=== PATIENT | female | born 1960 | race Caucasian/White ===

== ENCOUNTER 2021-09-14 13:18 | Inpatient (IN) ==
[2021-09-14 13:53] LABS: Basophils # (auto) 0.02 K/uL (0-0.2); Basophils % (auto) 0.2 %; Eosinophils # (auto) 0.22 K/uL (0-0.5); Eosinophils % (auto) 2.7 %; Hematocrit (blood only) 40.2 % (37-47); Hemoglobin 13.2 g/dL (12.0-16.0); Immature Granulocytes # (auto) 0.02 K/uL (0.00-0.02); Immature Granulocytes % (auto) 0.2 %; Lymphocytes # (auto) 1.58 K/uL (1.2-3.4); Lymphocytes % (auto) 19.4 %; Mean Corpuscular Hemoglobin 28.9 pg (25-34); Mean Corpuscular Hgb Conc 32.8 g/dL (32-36); Mean Corpuscular Volume 88.2 fL (80-100); Mean Platelet Volume 11.3 fL (7.4-10.4); Monocytes % (auto) 7.4 %; Neutrophils # (auto) 5.69 K/uL (1.4-6.5); Neutrophils % (auto) 70.1 %; Platelet Count 277 K/uL (130-400); RDW Coefficient of Variation 14.4 % (11.5-14.5); RDW Standard Deviation 46.8 fL (36.4-46.3); Red Blood Count 4.56 M/uL (4.2-5.4); White Blood Count 8.13 K/uL (4.8-10.8)
[2021-09-14] MEDS ORDERED: NITROGLYCERIN 2% OINTMENT 30GM TUBE EXT STA (13:59)
[2021-09-14] MEDS ORDERED: MoRPHine SULFATE 2 MG/ML CARP IV STA ×2 (13:59)
[2021-09-14] MEDS ORDERED: ONDANSETRON INJ 2 MG/ML 2 ML VIAL IV STA (13:59)
--- NOTE | 2021-09-14 14:04 | Emergency Department Note ---
Impression & Plan Precordial chest pain, Hypertensive urgency, Elevated troponin, History of coronary artery disease ED Provider Note NAME: FRANK BAEZ AGE: 60 SEX: F : 1960 ARRIVES VIA: Ambulance INFORMANT: [Patient] ED PROVIDER(S): [Jason Vazquez MD] CHIEF COMPLAINT: Cardiac assessment HISTORY OF PRESENT ILLNESS: The patient is a 60-year-old female who presents to the ER with chest pain that began fairly suddenly at rest at around 1030, 3-1/2 hours ago. The pain is an 8/10. She has pain across the central chest into the right jaw and down the left arm. The patient was given 2 nitroglycerin and 4 baby aspirin in route. This helped slightly. The patient is not short of breath, no sweating or nausea. She has been in baseline health of late. No exertional dyspnea or chest pain. She has a history of an LAD stent placed about a year ago. She states her symptoms today feel similar to what occurred 1 year ago. REVIEW OF SYSTEMS: See HPI for pertinent positives and negatives. A total of ten systems were reviewed and were otherwise negative. PMHx/PSHx: See Below SOCIAL HISTORY: See Below. PHYSICAL EXAM: GENERAL: Patient is in no acute distress. HEENT: No acute trauma, normocephalic atraumatic, mucous membranes moist, no nasal congestion, no scleral icterus. NECK: No stridor, no adenopathy, no meningismus, trachea is midline. LUNGS: Clear to auscultation bilaterally, no wheeze, no rhonchi, breath sounds equal. Chest: Tender to the anterior sternal chest wall. HEART: Without murmurs gallops or rubs, regular rate and rhythm. ABDOMEN: Soft, nontender, bowel sounds positive, no peritonitis. EXTREMITIES: No cyanosis or edema, full range of motion of all the joints without pain or difficulty, no signs for acute trauma. Strong distal left radial pulse. NEUROLOGIC: Oriented x 3, no acute motor or sensory deficits, no focal weakness. SKIN: No rash, no jaundice, no diaphoresis. DIFFERENTIAL DIAGNOSIS: Cardiac ischemia, aortic dissection, pulmonary embolism, pneumothorax, pneumonia, pericarditis, myocarditis, esophageal rupture, GERD, cholecystitis, pancreatitis, musculoskeletal, as well as other pathologies. EMERGENCY DEPARTMENT COURSE/PROCEDURES: ECG: Indication was chest pain. The ECG shows a normal sinus rhythm with a rate of 75. There is an old anterior infarct. There is no worrisome ST elevation. There is an inverted T wave in lead aVR. No PVCs. The QTc is 431. No old ECGs available for review. Repeat ECG: Indication was chest pain. The ECG shows a normal sinus rhythm with an old anterior infarct and potential old inferior infarct. There is an inverted T wave in lead aVR. There is no ST elevation, no PVCs. QTC is 441. Compared to the ECG from earlier, I see no significant change. Continuous Cardiac Monitoring: An order was placed for continuous cardiac monitoring. The monitor shows a rate of 88 with normal sinus rhythm. MEDICAL DECISION MAKING: There is no leukocytosis or concerning anemia. Platelet count is normal. No coagulopathy. No renal failure or significant electrolyte abnormality. No concerning liver enzyme elevation. COVID test returned negative. Chest x-ray did not show CHF or pneumonia. No significant mediastinal widening. Chest CT did not show any evidence for aortic dissection, no pneumonia. ECG showed a normal sinus rhythm with an old anterior infarct. There was no ST elevation. Repeat ECG performed sometime later showed similar findings. Cardiac enzyme testing x1 is slightly elevated, this elevation could be consistent with cardiac strain/injury. The patient was quite hypertensive upon arrival. She complaining of chest pain, jaw pain and arm pain. She did not meet criteria for a heart alert. The patient received IV morphine for pain, 2 inches of nitroglycerin paste, IV Zofran. She was given IV labetalol and eventually a dose of IV Dilaudid. The patient does feel improved, her blood pressure has improved. She is going t o require a hospital stay. I am concerned about cardiac injury given her complaints and the very very high blood pressure. She has a history of coronary disease. Her troponin will need to be trended. I spoke with the patient and case management. The on-call hospitalist was consulted. Past Med/Surg History Medical History CAD (coronary artery disease) LAD stent in 2020 at [facility] in [place], follows with [facility] Cardiology Depression GERD (gastroesophageal reflux disease) Hyperlipidemia Hypertension Insomnia Social History Smoking Status: Never smoker Feels Safe at Home: Yes Allergies Allergies Allergy/AdvReac Type Severity Reaction Status Date / Time No Known Allergies Allergy Verified 09/14/21 15:34 Home Meds Home Medications Medication Instructions Recorded Confirmed amlodipine 10 mg tablet 10 mg PO QAM 09/14/21 09/14/21 aspirin 81 mg tablet,delayed 81 mg PO DAILY 09/14/21 09/14/21 release atorvastatin 80 mg tablet 80 mg PO HS 09/14/21 09/14/21 bupropion HCl 300 mg 24 hr tablet, 300 mg PO QAM 09/14/21 09/14/21 extended release carvedilol 12.5 mg tablet 12.5 mg PO BID 09/14/21 09/14/21 clopidogrel 75 mg tablet 75 mg PO QAM 09/14/21 09/14/21 losartan 100 mg tablet 100 mg PO QA 09/14/21 09/14/21 mirtazapine 15 mg tablet 15 mg PO HS 09/14/21 09/14/21 omeprazole 40 mg capsule,delayed 40 mg PO QA 09/14/21 09/14/21 release topiramate 50 mg tablet 50 mg PO HS 09/14/21 09/14/21 Results & Data (ED) Vital Signs Vital Signs - 24 hr 09/14/21 13:34 09/14/21 13:44 09/14/21 14:52 Pulse Rate 85 Pulse Rate [Right Finger] 88 Respiratory Rate 18 Respiratory Effort / Characteristics Non-Labored Respiratory Depth Normal Blood Pressure 184/121 H Blood Pressure [Right Arm] 184/121 H 163/110 H Blood Pressure Mean 142 Blood Pressure Mean [Right Arm] 142 127 Pulse Oximetry 98 98 Oxygen Delivery Method Room Air Room Air Sepsis Recent Fever Within 48 Hours No Sepsis New/Unexplained Change in Mental Status No Sepsis Action Taken by Nursing No Action Required Pulse Oximetry Post Tiitration 98 09/14/21 15:28 Pulse Rate Pulse Rate [Right Finger] 70 Respiratory Rate 16 Respiratory Effort / Characteristics Respiratory Depth Normal Blood Pressure Blood Pressure [Right Arm] 169/117 H Blood Pressure Mean Blood Pressure Mean [Right Arm] 134 Pulse Oximetry 89 L Oxygen Delivery Method Room Air Sepsis Recent Fever Within 48 Hours Sepsis New/Unexplained Change in Mental Status Sepsis Action Taken by Nursing Pulse Oximetry Post Tiitration Home Medications Current Medication List: was personally reviewed by me Laboratory Data Attestation: I reviewed the patient's lab results. Result diagrams: 09/14/21 13:29 09/14/21 13:29 Lab Results 09/14/21 09/14/21 09/14/21 Range/Units 13:29 13:29 13:29 WBC 8.13 (4.8-10.8) K/uL RBC 4.56 (4.2-5.4) M/uL Hgb 13.2 (12.0-16.0) g/dL Hct 40.2 (37-47) % MCV 88.2 (80-100) fL MCH 28.9 (25-34) pg MCHC 32.8 (32-36) g/dL RDW Std Deviation 46.8 H (36.4-46.3) fL RDW Coeff of Bill 14.4 (11.5-14.5) % Plt Count 277 (130-400) K/uL MPV 11.3 H (7.4-10.4) fL Immature Gran % (Auto) 0.2 % Neut % (Auto) 70.1 % Lymph % (Auto) 19.4 % [place] % (Auto) 7.4 % Eos % (Auto) 2.7 % Baso % (Auto) 0.2 % Neut # (Auto) 5.69 (1.4-6.5) K/uL Lymph # (Auto) 1.58 (1.2-3.4) K/uL [place] # (Auto) 0.60 H (0.11-0.59) K/uL Eos # (Auto) 0.22 (0-0.5) K/uL Baso # (Auto) 0.02 (0-0.2) K/uL Immature Gran # (Auto) 0.02 (0.00-0.02) K/uL PT 10.5 (9.0-12.0) Seconds INR 1.0 (0.9-1.1) APTT 25.9 (21.0-31.0) Seconds PTT Ratio 0.9 Sodium 138 (136-145) mmol/L Potassium 3.6 (3.5-5.1) mmol/L Chloride 105 (98-107) mmol/L Carbon Dioxide 26 (21-32) mmol/L Anion Gap 7 (3-11) BUN 16 (6-23) mg/dl Creatinine 0.87 (0.6-1.2) mg/dl Est Cr Clr Drug Dosing 80.9 ml/min Est GFR ( Amer) 82.8 ml/min Est GFR (Non-Af Amer) 71.4 ml/min BUN/Creatinine Ratio 18.4 (10-20) Glucose 120 H (70-99(Fasting)) mg/dl Calcium 9.5 (8.5-10.1) mg/dl Magnesium (1.7-2.4) mg/dl Total Bilirubin 0.5 (0.2-1.0) mg/dl AST 11 L (13-39) U/L ALT 14 (7-52) U/L Alkaline Phosphatase 132 H (34-104) U/L Troponin I High Sens 38.2 H (0-14) pg/ml Total Protein 7.1 (6.0-8.3) gm/dl Albumin 4.1 (3.4-5.0) gm/dl Globulin 3.0 (2.5-4.0) gm/dl Albumin/Globulin Ratio 1.4 (0.9-2) SARS-CoV-2, RNA, NAAT (NEGATIVE) 09/14/21 09/14/21 09/14/21 Range/Units 13:29 14:12 15:51 WBC (4.8-10.8) K/uL RBC (4.2-5.4) M/uL Hgb (12.0-16.0) g/dL Hct (37-47) % MCV (80-100) fL MCH (25-34) pg MCHC (32-36) g/dL RDW Std Deviation (36.4-46.3) fL RDW Coeff of Bill (11.5-14.5) % Plt Count (130-400) K/uL MPV (7.4-10.4) fL Immature Gran % (Auto) % Neut % (Auto) % Lymph % (Auto) % [place] % (Auto) % Eos % (Auto) % Baso % (Auto) % Neut # (Auto) (1.4-6.5) K/uL Lymph # (Auto) (1.2-3.4) K/uL [place] # (Auto) (0.11-0.59) K/uL Eos # (Auto) (0-0.5) K/uL Baso # (Auto) (0-0.2) K/uL Immature Gran # (Auto) (0.00-0.02) K/uL PT (9.0-12.0) Seconds INR (0.9-1.1) APTT (21.0-31.0) Seconds PTT Ratio Sodium (136-145) mmol/L Potassium (3.5-5.1) mmol/L Chloride (98-107) mmol/L Carbon Dioxide (21-32) mmol/L Anion Gap (3-11) BUN (6-23) mg/dl Creatinine (0.6-1.2) mg/dl Est Cr Clr Drug Dosing ml/min Est GFR ( Amer) ml/min Est GFR (Non-Af Amer) ml/min BUN/Creatinine Ratio (10-20) Glucose (70-99(Fasting)) mg/dl Calcium (8.5-10.1) mg/dl Magnesium 1.9 (1.7-2.4) mg/dl Total Bilirubin (0.2-1.0) mg/dl AST (13-39) U/L ALT (7-52) U/L Alkaline Phosphatase (34-104) U/L Troponin I High Sens 622.5 H* D (0-14) pg/ml Total Protein (6.0-8.3) gm/dl Albumin (3.4-5.0) gm/dl Globulin (2.5-4.0) gm/dl Albumin/Globulin Ratio (0.9-2) SARS-CoV-2, RNA, NAAT NEGATIVE (NEGATIVE) Administered Medications Magnesium Sulfate/Dextrose (Magnesium Sulfate / D5w) 1 gm in 100 mls @ 50 mls/ hr IV ONE ONE Stop: 09/14/21 18:50 Last Admin: 09/14/21 17:03 Dose: 50 mls/hr Documented by: [id number] Discontinued Medications Hydromorphone HCl (Hydromorphone Inj 0.5 Mg/0.5 Ml Syr) 0.5 mg IV NOW STA Stop: 09/14/21 14:53 Last Admin: 09/14/21 14:57 Dose: 0.5 mg Documented by: [id number] Ioversol (Optiray 320 125ml) 119 ml IV ONCE ONE Stop: 09/14/21 15:13 Last Admin: 09/14/21 15:12 Dose: 119 ml Documented by: [id number] Labetalol HCl (Labetalol Hcl Iv 5 Mg/Ml 20ml) 10 mg IV NOW STA Stop: 09/14/21 14:53 Last Admin: 09/14/21 14:57 Dose: 10 mg Documented by: [id number] Cosigned by: [id number] Morphine Sulfate (Morphine Sulfate 2 Mg/Ml Carp) 2 mg IV NOW STA Stop: 09/14/21 14:00 Last Admin: 09/14/21 14:05 Dose: 2 mg Documented by: [id number] Morphine Sulfate (Morphine Sulfate 2 Mg/Ml Carp) 2 mg IV NOW STA Stop: 09/14/21 14:00 Last Admin: 09/14/21 14:49 Dose: 2 mg Documented by: [id number] Nitroglycerin (Nitroglycerin 2% Ointment 30gm Tube) 2 inch EXT NOW STA Stop: 09/14/21 14:00 Last Admin: 09/14/21 14:05 Dose: 2 inch Documented by: [id number] Ondansetron HCl (Ondansetron Inj 2 Mg/Ml 2 Ml Vial) 4 mg IV NOW STA Stop: 09/14/21 14:00 Last Admin: 09/14/21 14:05 Dose: 4 mg Documented by: [id number] Potassium Chloride (Potassium Chloride Crtab 20 Meq Tabcr) 40 meq PO NOW STA Stop: 09/14/21 16:52 Last Admin: 09/14/21 17:03 Dose: 40 meq Documented by: [id number] Imaging Data Radiologist's Impression: Chest X-Ray 09/14/21 13:54 XR chest 1V portable CLINICAL HISTORY: cp TECHNIQUE: Single frontal radiograph of the chest was obtained. Comparison: None available at the time of this dictation. FINDINGS: No lines and tubes are seen. The cardiomediastinal silhouette is normal. The lungs are clear. No evidence of pleural effusion or pneumothorax. IMPRESSION: No acute chest disease. ACT 112: Negative or not required by law. Electronically signed by: Trevon Barajas M.D. 09/14/2021 2:45 PM Chest CTA 09/14/21 14:52 CT angio chest dissec wo/w con CLINICAL HISTORY: htn, chest pain, arm pain TECHNIQUE: Multidetector row helical CT of the chest was performed before and after injection of IV contrast. Coronal and sagittal reformations were obtained. Automated dose lowering techniques and/or adjustment according to patient size were utilized for this exam. CT DOSE: 1172.56 mGy.cm Comparison: Comparison is made to chest radiograph 09/14/2021 FINDINGS: Lungs and pleura: Atelectasis versus scarring is seen in the dependent portions of the lungs. Heart and pericardium: Heart size is normal. No pericardial effusion. Vessels: No aortic dissection or intramural hematoma is seen. Moderate atherosclerotic disease is seen. Incidental note is made of common origin of the left common carotid artery and the right brachiocephalic artery. The pulmonary trunk is minimally prominent at 32 mm. Mediastinum and jeanie: Subcentimeter lymph nodes are seen. Chest wall and lower neck: Unremarkable. Abdomen: Unremarkable. Bones: Degenerative changes in the thoracic spine. IMPRESSION: No acute abnormality and in particular no evidence of acute aortic injury. ACT 112: Negative or not required by law. Electronically signed by: Trevon Barajas M.D. 09/14/2021 3:23 PM Discharge Plan Visit Data Chief Complaint: Cardiac Assessment Stated Complaint: CHEST PAIN ED Provider: Jason Vazquez Discharge Problem: Precordial chest pain, Hypertensive urgency, Elevated troponin, History of coronary artery disease Patient Disposition: Admitted As Inpatient Condition: Fair Forms Stand Alone Forms: My [employer] Prescriptions Prescriptions: No Action atorvastatin 80 mg tablet 80 mg PO HS RF: 0 carvedilol 12.5 mg tablet 12.5 mg PO BID RF: 0 clopidogrel 75 mg tablet 75 mg PO QAM RF: 0 omeprazole 40 mg capsule,delayed release(DR/EC) 40 mg PO QAM RF: 0 aspirin 81 mg Tablet,Delayed Release (Dr/Ec) 81 mg PO DAILY RF: 0 amlodipine 10 mg tablet 10 mg PO QAM RF: 0 mirtazapine 15 mg tablet 15 mg PO HS RF: 0 losartan 100 mg tablet 100 mg PO QAM RF: 0 bupropion HCl 300 mg tablet extended release 24 hr 300 mg PO QAM RF: 0 topiramate 50 mg tablet 50 mg PO HS RF: 0 Referrals Referrals: PCP,NO [Primary Care Provider] -
[2021-09-14 14:13] LABS: Partial Thromboplastin Ratio 0.9; Partial Thromboplastin Time 25.9 Seconds (21.0-31.0); Prothrombin Time 10.5 Seconds (9.0-12.0)
[2021-09-14 14:22] LABS: Albumin Globulin Ratio 1.4 (0.9-2); Albumin Level 4.1 gm/dl (3.4-5.0); BUN Creatinine Ratio 18.4 (10-20); Bilirubin,Total 0.5 mg/dl (0.2-1.0); Calcium 9.5 mg/dl (8.5-10.1); Creatinine Clr Calc Pharmacy 80.9 ml/min; Est GFR (African American) 82.8 ml/min; Est GFR (Non-African American) 71.4 ml/min; Potassium 3.6 mmol/L (3.5-5.1); Total Protein 7.1 gm/dl (6.0-8.3)
[2021-09-14 14:23] LABS: Troponin I High Sensitivity 38.2 pg/ml (0-14)
--- NOTE | 2021-09-14 14:46 | XRay Report ---
XR chest 1V portable CLINICAL HISTORY: cp TECHNIQUE: Single frontal radiograph of the chest was obtained. Comparison: None available at the time of this dictation. FINDINGS: No lines and tubes are seen. The cardiomediastinal silhouette is normal. The lungs are clear. No evid ence of pleural effusion or pneumothorax. IMPRESSION: No acute chest disease. ACT 112: Negative or not required by law. Electronically signed by: Trevon Barajas M.D. 09/14/2021 2:45 PM
[2021-09-14] MEDS ORDERED: HYDROmorphone INJ 0.5 MG/0.5 ML SYR IV STA (14:52)
[2021-09-14] MEDS ORDERED: LABETALOL HCL IV 5 MG/ML 20ML IV STA (14:52)
[2021-09-14] MEDS ORDERED: OPTIRAY 320 125ml IV ONE (15:12)
--- NOTE | 2021-09-14 15:25 | CT Scan Report ---
CT angio chest dissec wo/w con CLINICAL HISTORY: htn, chest pain, arm pain TECHNIQUE: Multidetector row helical CT of the chest was performed before and after injection of IV c ontrast. Coronal and sagittal reformations were obtained. Automated dose lowering techniques and/or a djustment according to patient size were utilized for this exam. CT DOSE: 1172.56 mGy.cm Comparison: Comparison is made to chest radiograph 09/14/2021 FINDINGS: Lungs and pleura: Atelectasis versus scarring is seen in the dependent portions of the lungs. Heart and pericardium: Heart size is normal. No pericardial effusion. Vessels: No aortic dissection or intramural hematoma is seen. Moderate atherosclerotic disease is see n. Incidental note is made of common origin of the left common carotid artery and the right brachioce phalic artery. The pulmonary trunk is minimally prominent at 32 mm. Mediastinum and jeanie: Subcentimeter lymph nodes are seen. Chest wall and lower neck: Unremarkable. Abdomen: Unremarkable. Bones: Degenerative changes in the thoracic spine. IMPRESSION: No acute abnormality and in particular no evidence of acute aortic injury. ACT 112: Negative or not required by law. Electronically signed by: Trevon Barajas M.D. 09/14/2021 3:23 PM
--- NOTE | 2021-09-14 15:41 | History & Physical Report ---
Date of Service September 14, 2021 Assessment & Plan (1) Chest pain: Plan: - HEART alert called after repeat troponin back at 622.5, ongoing left arm pain despite multiple medications given for pain, HTN (10mg IV Labetalol, Dilaudid, morphine, 2 inch nitro-paste) - Upon arrival, initial HS trop 38.2.--two hours later repeat, is 622.5. - BP now more controlled 150s/90s but left arm pain persists therefore nitro drip started with stop parameters for resolution of chest/arm pain, goal SBP 140. - Low dose heparin drip with bolus ordered. - Spoke with motion picture film examiner house mover helper, plans for emergent cath. Also spoke to purchasing administrator to make aware of patient's impending arrival after sleep lab technologist. - K+ 3.6, ordered 40 mEq KCl PO. - Mg++ 1.9, ordered 1 gm IV Mg. - Further orders to follow, per house mover helper. (2) CAD (coronary artery disease): Plan: - SC last year, LAD stent placed at [facility] in [place]. - Have requested cardiology records from [facility], sees Dr. Sanchez there. - Continue statin, ASA + Plavix, amlodipine, carvedilol, losartan. (3) Hypertension: Plan: - Despite taking morning BP meds prior to arrival, she was very hypertensive upon arrival with highest BP in ED recorded at 184/121. After receiving 10 mg IV labetalol, Dilaudid, morphine, 2 inch nitro paste. - Nitro drip ordered. (4) Hyperlipidemia: Plan: - Continue atorvastatin 80 mg HS. (5) Insomnia: Plan: - Continue mirtazapine. (6) Depression: Plan: - Continue Wellbutrin 300 mg daily. (7) GERD (gastroesophageal reflux disease): Plan: - Takes omeprazole 40 mg, switch to hospital formulary equivalent. Plan: - ICU. - SCDs for VTE ppx. - Full Code. History of Present Illness Chief Complaint: ongoing chest pain since this morning Primary Care Provider: NO PCP Anya Almazan is a 60-year-old female with past medical history significant for CAD with LAD stent placed 1 year ago now on DAPT, hypertension, hyperlipidemia, GERD, depression, an insomnia who presents today with chest pain this morning. [place] this [place], she woke up this morning in her usual state of health, cooked breakfast consisting of sausage and Armenian toast. She ate this, during her morning coffee with her daughter. While sitting down, she began to experience pain in her epigastric region that traveled up her chest and throat into her her jaw to the ear. She initially wanted to wait out the pain to see if going outside, however she later developed left arm pain. This presentation is very similar to how she felt last year prior to her SC, therefore she had daughter call EMS to bring her to ED for further evaluation. She has not had any associated symptoms such as shortness of breath, palpitations, dizziness, lightheadedness, initially was not nauseous, however became slightly nauseous on her arrival to the hospital. She did receive 2 nitro sublingual tabs as well as 4 baby aspirin in route which helped somewhat. Since her SC 1 year ago, she has been compliant with her aspirin and Plavix therapy, BP medd, and statin and has been attending cardiac rehab, this ended last week. There are several occasions within the past couple months when she could not attend due to elevated blood pressure, mostly diastolic blood pressure, with 1 incident this week. She does check her blood pressure at least weekly at home, reports systolic is [id number], diastolic in 70s or 80s. In ED, she initially presented quite hypertensive with BP 184/121, however now down to 150s/90s following 2 inch Nitropaste, morphine, Dilaudid, and 10 mg IV labetalol. Otherwise vital signs within normal limits. After receiving morphine, Dilaudid she went down to 89% on room air, so was placed on 2 L. Initial troponin 38.2. Labs otherwise unremarkable. CXR unremarkable. Chest CTA ordered to evaluate for dissection, given chest pain with significant hypertension, however this was unrevealing for any acute process. Despite the above therapies for blood pressure control and chest pain, patient continued to have left arm pain, her chest pain has resolved. Allergies Allergy/AdvReac Type Severity Reaction Status Date / Time No Known Allergies Allergy Verified 09/14/21 15:34 Home Medications Medication Instructions Recorded Confirmed Type amlodipine 10 mg tablet 10 mg PO QAM 09/14/21 09/14/21 History aspirin 81 mg tablet,delayed 81 mg PO DAILY 09/14/21 09/14/21 History release atorvastatin 80 mg tablet 80 mg PO HS 09/14/21 09/14/21 History bupropion HCl 300 mg 24 hr tablet, 300 mg PO QAM 09/14/21 09/14/21 History extended release carvedilol 12.5 mg tablet 12.5 mg PO BID 09/14/21 09/14/21 History clopidogrel 75 mg tablet 75 mg PO QAM 09/14/21 09/14/21 History losartan 100 mg tablet 100 mg PO QAM 09/14/21 09/14/21 History mirtazapine 15 mg tablet 15 mg PO HS 09/14/21 09/14/21 History omeprazole 40 mg capsule,delayed 40 mg PO QAM 09/14/21 09/14/21 History release topiramate 50 mg tablet 50 mg PO HS 09/14/21 09/14/21 History Past Med/Surg History Medical History CAD (coronary artery disease) LAD stent in 2020 at [facility] in [place], follows with [facility] Cardiology Depression GERD (gastroesophageal reflux disease) Hyperlipidemia Hypertension Insomnia Social History Smoking Status: Former smoker Second Hand Exposure: Yes; Hx Alcohol Use: No Hx Substance Use: No Preferred Language: Greek Communication Ability: Effective Sales Stock Associate Required: No Beliefs That Will Affect Care: None Current Living Situation: Alone Feels Safe at Home: Yes Assistive Devices: Cane Review of Systems Review of Systems: All systems reviewed & are unremarkable except as noted in HPI & below Physical Exam Physical Exam: General: awake, alert, no apparent distress Head: Normocephalic, atraumatic ENT: PERRL, EOMI, no pharyngeal exudate, mucous membranes moist Chest: Clear to auscultation, on room air, no adventitious breath sounds Cardiac: chest pain reproducible with palpation to upper left chest wall; Regular rate and rhythm, no murmur, no JVD, normal peripheral pulses, good capillary refill Abdominal: epigastric, LUQ TTP but without rebound, guarding; NABS x 4 quadrants, soft abdomen Extremities: Normal inspection, no peripheral edema or erythema, calfs nontender to palpation Psych: Normal mood and affect Neuro: AAO x 3, strength intact bilaterally and rated 5/5, no motor deficits, speech is clear, no peripheral sensory deficits Skin: no rash or erythema Results & Data Results & Data ([facility]) Vital Signs (Past 12 Hours) Vital Signs Pulse Pulse Resp BP BP Pulse Ox 09/14/21 15:28 70 16 169/117 H 89 L 09/14/21 14:52 163/110 H 09/14/21 13:44 98 09/14/21 13:34 85 88 18 184/121 H 184/121 H 98 Laboratory Results Abnormal lab results 09/14/21 09/14/21 Range/Units 13:29 13:29 RDW Std Deviation 46.8 H (36.4-46.3) fL MPV 11.3 H (7.4-10.4) fL [place] # (Auto) 0.60 H (0.11-0.59) K/uL Glucose 120 H (70-99(Fasting)) mg/dl AST 11 L (13-39) U/L Alkaline Phosphatase 132 H (34-104) U/L Troponin I High Sens 38.2 H (0-14) pg/ml Diagnostic Findings Chest X-Ray 09/14/21 13:54 XR chest 1V portable CLINICAL HISTORY: cp TECHNIQUE: Single frontal radiograph of the chest was obtained. Comparison: None available at the time of this dictation. FINDINGS: No lines and tubes are seen. The cardiomediastinal silhouette is normal. The lungs are clear. No evidence of pleural effusion or pneumothorax. IMPRESSION: No acute chest disease. ACT 112: Negative or not required by law. Electronically signed by: Trevon Barajas M.D. 09/14/2021 2:45 PM Chest CTA 09/14/21 14:52 CT angio chest dissec wo/w con CLINICAL HISTORY: htn, chest pain, arm pain TECHNIQUE: Multidetector row helical CT of the chest was performed before and after injection of IV contrast. Coronal and sagittal reformations were obtained. Automated dose lowering techniques and/or adjustment according to patient size were utilized for this exam. CT DOSE: 1172.56 mGy.cm Comparison: Comparison is made to chest radiograph 09/14/2021 FINDINGS: Lungs and pleura: Atelectasis versus scarring is seen in the dependent portions of the lungs. Heart and pericardium: Heart size is normal. No pericardial effusion. Vessels: No aortic dissection or intramural hematoma is seen. Moderate atherosclerotic disease is seen. Incidental note is made of common origin of the left common carotid artery and the right brachiocephalic artery. The pulmonary trunk is minimally prominent at 32 mm. Mediastinum and jeanie: Subcentimeter lymph nodes are seen. Chest wall and lower neck: Unremarkable. Abdomen: Unremarkable. Bones: Degenerative changes in the thoracic spine. IMPRESSION: No acute abnormality and in particular no evidence of acute aortic injury. ACT 112: Negative or not required by law. Electronically signed by: Trevon Barajas M.D. 09/14/2021 3:23 PM Code Status & VTE Plan Code Status Full Code. Critical Care Time Critical Care Time: Yes Total Critical Care Time: 35 Supervising Physician Co-Signing Physician Notes I personally saw and examined the patient. I verified all willis points and agree with Liliana Serrano PA-C with the following exceptions and/or additions: 60 year old female with known CAD and LAD stent placed last year at [facility] presents with chest pain radiating jaw and left arm. Chart was reviewed when patient was put up for admission and advised PA to see patient. PA had seen patient when alerted myself to high sensitivity troponin I increase from 38.2 to 622.5 pg/ml when this was resulted at which point I went to see the patient immediately. Reportedly pain had much improved with morphine 2mg IV x2, Dilaudid 0.5mg IV, Labetalol 10mg IV and 1 inch nitro paste currently on however she was still having some left arm pain. No chest pain. EKG without ST elevations or new LBBB. Advised to start nitroglycerin IV drip and I discussed with ICU attending regarding admission to ICU. ER accredited legal secretary contacted Dr Guzman (interventionalist motion picture film examiner) who I personally discussed the patient with and he advised to call for a heart alert to have the sleep lab technologist ready. Patient had occluded LAD stent with thrombus with PCI balloon angioplasty. Will remain on heparin IV for 24 hours. Angiomax given at time of angioplasty. Clopidogrel switched for Brillinta. Patient was reviewed in the ICU s/p cardiac cath and now has complete resolution of her left arm and chest pain. Updated her daughter (Damaris) over the phone. PG Care Time/CCT Total # of Minutes Spent Total Time Spent with Patient: Total time spent is greater than 50% in coordination of care (as documented) at patient's floor/unit and/or counseling patient: Critical Care Time: Yes Total Critical Care Time: 35 Coding Level of Care Code 74522 Initial Inpt Care Lvl 3 Diagnoses Insomnia G47.00 Depression F32.A Chest pain R07.9 CAD (coronary artery disease) I25.10 Hypertension I10 Hyperlipidemia E78.5 GERD (gastroesophageal reflux disease) K21.9 Additional Codes Critical Care Time - Critical Care Time: Yes ([id number])
[2021-09-14] MEDS ORDERED: POTASSIUM CHLORIDE CRTAB 20 MEQ TABCR PO STA (16:51)
[2021-09-14] MEDS ORDERED: MAGNESIUM SULFATE / D5W 1 GM/100 ML BAG IV ONE (16:51)
[2021-09-14] MEDS ORDERED: Heparin IV Adult Wt-Based Low-Dose WITH Bolus Protocol IV SCH (17:14)
[2021-09-14] MEDS ORDERED: STAT IV Infusion **Titration per Protocol STA (17:18)
[2021-09-14] MEDS ORDERED: HEPARIN SOD (PORCINE) 1000 UNIT/ML IV ONE (17:27)
[2021-09-14] MEDS ORDERED: NITROGLYCERIN/D5W 100MCG/ML 250 ML IV SCH (17:30)
[2021-09-14] MEDS ORDERED: HEPARIN SODIUM/DEXTROSE 25,000 UNITS/500 ML BAG IV SCH (17:30)
[2021-09-14] MEDS ORDERED: HEPARIN 25000 UNIT/500 ML D5W IV ONE (17:33)
[2021-09-14] MEDS ORDERED: niCARdipine HCL INJ 2.5 MG/ML 10 ML AMP ONE (17:47)
[2021-09-14] MEDS ORDERED: MIDAZOLAM HCL 1 MG/ML 2ML VIAL ONE (17:47)
[2021-09-14] MEDS ORDERED: HEPARIN (PORCINE) 1000 UNIT/ML 10 ML (CATH LAB USE ONLY) ONE (17:47)
[2021-09-14] MEDS ORDERED: NITROGLYCERIN/D5W 100MCG/ML 20ML SYR ONE (17:48)
[2021-09-14] MEDS ORDERED: fentaNYL citrate 100 MCG/2 ML VIAL ONE (17:48)
--- NOTE | 2021-09-14 17:49 | Emergency Department Note ---
ED Visit Note The patient's second troponin returned quite elevated when compared to the first. She still was having some discomfort. She was not pain-free. Her blood pressure was better controlled. The hospitalist service was involved in the case already, discussions were made with cardiology. The patient is going to go to the cardiac catheterization lab for potential coronary intervention. .
[2021-09-14] MEDS ORDERED: BIVALIRUDIN 250 MG VIAL (CATH LAB ONLY) ONE (17:51)
[2021-09-14] MEDS ORDERED: LIDOCAINE 1% LOCAL 20 ML VIAL ONE (18:01)
--- NOTE | 2021-09-14 18:28 | Pre Anesthesia Assessment ---
Date of Service September 14, 2021 Pre Sedation Assessment Vital Signs Pulse Pulse Resp BP BP Pulse Ox 09/14/21 17:38 70 18 145/95 H 98 09/14/21 15:28 70 16 169/117 H 89 L 09/14/21 14:52 163/110 H 09/14/21 13:44 98 09/14/21 13:34 85 88 18 184/121 H 184/121 H 98 Cardiovascular RRR, no murmur, no edema Respiratory normal respiratory effort, lungs clear to auscultation Pre-Sedation Airway Assessment Smoking Status: Never smoker II III Notes The planned sedation has been discussed with the patient. Informed Consent was obtained. I have identified the patient, determined the appropriateness of sedation and have assessed the patient immediately prior to the procedure. All medicine(s) and interventions are by my order.
[2021-09-14] MEDS ORDERED: PRASugrel TAB 10 MG TAB PO ONE (18:52)
[2021-09-14] MEDS ORDERED: ONDANSETRON INJ 2 MG/ML 2 ML VIAL ONE (18:57)
[2021-09-14] MEDS ORDERED: TICAGRELOR 90 MG TAB ONE (19:00)
--- NOTE | 2021-09-14 19:04 | Post Anesthesia Assessment ---
Date of Service September 14, 2021 Post Sedation Assessment Vital Signs Pulse Pulse Resp BP BP Pulse Ox 09/14/21 17:38 70 18 145/95 H 98 09/14/21 15:28 70 16 169/117 H 89 L 09/14/21 14:52 163/110 H 09/14/21 13:44 98 09/14/21 13:34 85 88 18 184/121 H 184/121 H 98 Recovery Score Activity: Moves 4 extremities Respiration: Deep Breath/Cough Circulation: +/-20% PreAnes Value Consciousness: Fully Awake Oxygen Saturation: O2 needed for >90% Discharge Sedation Level of Care: Phase I Post Sedation Plan On clinical assessment, the patient appears to have tolerated the sedation without complications. Patient is recovering as anticipated. Patient will continue to be monitored by nursing and may be discharged when sedation discharge criteria are met per below protocol. Upon Completions of procedure up to 15 minutes continue every 5 minute vital signs and the P.A.R. score; then discharge to a Phase I or Fast Track to Phase II per the following guidelines: * Discharge Patient to appropriate Phase II area if PAR is 8 or greater or return to pre- procedure baseline. The post - procedure orders will be as directed. * If PAR score is less than 8 or not return to pre-procedure baseline then patient will follow Phase I monitoring till PAR is reached for Phase II. The Phase I may be done in procedure room or may call to secure a Phase I area. * If naloxone or flumazenil are used for reversal, hold in Phase I for continued monitoring from when last reversal dose was given for a minimum of 60 minutes or longer pending the nurse and/or physician discretion of patient condition before discharge to Phase II. Please call the Sedation Physician to re-evaluate and complete post-note for discharge to Phase II area. Do NOT discharge from procedure sedation or Phase 1 until post- sedation evaluation note is complete by procedure /sedation MD Sedation Discharge Instructions to be given to the patient at discharge to home.
--- NOTE | 2021-09-14 19:06 | Cardiac Catheterization ---
[facility] Data: Washer Engineer Cardiac Status Clinical evaluation leading to the procedure CAD Presenation: Non STEMI Diagnostic Physicians Name: Khris Guzman MD Closure Device Recommendations: Medical Therapy and/or Counseling and PCI without planned CABG Cardiac Cath Procedure Full Procedure Date September 14, 2021 Pre-Procedure Diagnosis Pre-Procedure Diagnosis: Non STEMI AUC Score AUC Score: 9 Post-Procedure Diagnosis Post-Procedure Diagnosis: Successful PCI Procedure(s) Performed Procedure(s) Performed: Coronary Angiography and PTCA Schedule Hanger Khris Guzman MD Estimated Blood Loss Estimated Blood Loss: None Summary of Findings 60-year-old female, presented to the hospital with symptoms of chest discomfort and left-sided arm pain for several hours that started this morning. She has prior history of coronary artery disease, LAD intervention performed with proximal LAD stent placed 1 year ago in [place]. She has been on aspirin and Plavix for anticoagulation. Urgent coronary angiography revealed occluded LAD stent with thrombus suggesting late stent thrombosis. Percutaneous intervention was performed initially with 2.5 mm balloon which revealed significant thrombus burden, subsequently she had PTCA performed with 3.5 mm x 15 mm noncompliant balloon at 14-16 atmospheric pressures with multiple inflations. She had successful anglican of flow, KENTON-3 flow and there was evidence of mild thrombus noted in the proximal segments which was nonflow limiting. She will be started on aspirin and Brilinta for anticoagulation, also continue with Angiomax at this point and subsequently will be started on intravenous heparin for the next 24 hours. Intensive risk factor modification including high intensity statins and beta- blockers as before. No family members were immediately available for discussions, these findings were discussed with intensive care unit staff after the procedure. Hemodynamics Rest Ao:: 124/80/112 Final Ao: 121/77/94 LV: not done Recommendations Recommendations: Medical Therapy and/or Counseling and PCI without planned CABG Radiation Exposure (mGy) 1413 Contrast (mls) 60 I attest to the content of the Intraoperative Record and any orders documented therein. Any exceptions are noted below. PG Care Time/CCT Total # of Minutes Spent Total Time Spent with Patient: Total time spent is greater than 50% in coordination of care (as documented) at patient's floor/unit and/or counseling patient:
[2021-09-14] MEDS ORDERED: ACETAMINOPHEN 325 MG TAB PO PRN (19:25)
[2021-09-14] MEDS ORDERED: NITROGLYCERIN SL 0.4 MG/TAB TAB SL PRN (19:25)
[2021-09-14] MEDS ORDERED: POLYETHYLENE (MIRALAX) 17 GM PACK PO PRN (19:25)
[2021-09-14] MEDS ORDERED: ICU PROTOCOL FOR HYPERGLYCEMIA PRN (19:50)
--- NOTE | 2021-09-14 19:57 | Critical Care Consultation ---
Date of Consultation September 14, 2021 Assessment & Plan (1) Admitted to intensive care unit: Reason Critically Ill: 60-year-old female with acute coronary syndrome who is status post PCI with angioplasty to the LAD requiring close hemodynamic monitoring status post coronary intervention. NEURO - * CAM ICU: NEGATIVE CARDIAC/VASCULAR - * Acute Coronary Syndrome s/p PCI w/ angioplasty to the Mid LAD w/o Stenting: * Finish Angiomax then to start Heparin gtt. * Continue Heparin gtt for 24 hrs per Interventionalist. * Per Dr. Guzman, patient to be started on Brilinta given reocclusion while on Plavix/ASA. Patient w/ ?? h/o SOB while on Brilinta in the past. Dr. Guzman suggests retrying again given the benefits. * Continue ASCVD Rx previously prescribed. * AM Echo. * [facility] to follow * EKG: NSR @ [address]/T-wave changes. QTc 441 ms. * Monitor on telemetry. RESPIRATORY - * No h/o pulmonary disease. * Prior smoker. * Supplemental O2 PRN. * Vomited during procedure. Monitor for s/s aspiration. GI/NUTRITION - * AHA Diet RENAL/LYTES - * No significant electrolyte derangements. - * No concerns at this time. * Strict I&Os. ENDO - * No h/o DM or thyroid Dz * BSGs per unit protocol. ISS --> gtt per unit policy. HEME - * Stable H&H * Requiring Heparin gtt ID - * No concerns for infectious contribution at this time. LINES/IV ACCESS - * PIVs x2 DVT PROPHYLAXIS - * Heparin gtt * SCDs I have personally spent 45 minutes of critical care time in the direct management of this patient. This is a life/limb threatening event. This includes time spent evaluating patient, direct bedside care, chart review, placing orders, interpretation of diagnostic studies, discussion with consultants, patient, and family members, as well as other required patient management activities. This time is exclusive of all separately billable procedures, and teaching time and separate from and in addition to any other critical care service time. Thank you for allowing us to participate in the care of this patient. Please refer to my attending physician's documentation for any further recommendations. (2) ACS (acute coronary syndrome): (3) S/P angioplasty: (4) CAD (coronary artery disease): (5) Hypertension: (6) Hyperlipidemia: History of Present Illness Attending Physician: Khris Guzman MD History of Present Illness Patient is a 60-year-old female with a significant past medical history of coronary artery disease, hypertension, and hyperlipidemia. The patient is status post PTCI with JIMMY x1 to the LAD approximately 1 year ago at home at a hospital in [facility]. Patient has reportedly been taking her Plavix, aspirin, and other ASCVD Rx as written. Unfortunately, on Wednesday, the patient had an episode of substernal chest discomfort which lasted briefly. She had no return of symptoms until approximately 10 AM this morning while having breakfast with her family. She had associated substernal chest pain which radiated up across her chest to the RIGHT-sided jaw and reported intense pain to the LEFT upper extremity. This prompted visit to the emergency department. Patient had no EKG changes at the emergency department, however her symptoms were poorly controlled and given her recent stent placement, she was taken to the catheterization suite for PCI. Patient underwent successful PCI with angioplasty of the mid LAD which was occluded. She was started on Angiomax and completed dose and then started on heparin. Plan is to place patient back on Brilinta given her failure while on Plavix. She will be monitored in the ICU overnight Upon evaluation in the ICU, the patient is awake, alert, oriented. She states that she does feel drowsy after her medications, but reports that her pain has 90% resolved. She still complains of some heaviness to the LEFT arm, but reports that it has significantly subsided. She denies complaints of chest pain, nausea, or vomiting. She did vomit 3 times while on the cath table. Otherwise, the patient offers no other complaints at this time. Allergies Allergy/AdvReac Type Severity Reaction Status Date / Time No Known Allergies Allergy Verified 09/14/21 15:34 Home Medications Medication Instructions Recorded Confirmed Type amlodipine 10 mg tablet 10 mg PO QAM 09/14/21 09/14/21 History aspirin 81 mg tablet,delayed 81 mg PO DAILY 09/14/21 09/14/21 History release atorvastatin 80 mg tablet 80 mg PO HS 09/14/21 09/14/21 History bupropion HCl 300 mg 24 hr tablet, 300 mg PO QAM 09/14/21 09/14/21 History extended release carvedilol 12.5 mg tablet 12.5 mg PO BID 09/14/21 09/14/21 History clopidogrel 75 mg tablet 75 mg PO QAM 09/14/21 09/14/21 History losartan 100 mg tablet 100 mg PO QAM 09/14/21 09/14/21 History mirtazapine 15 mg tablet 15 mg PO HS 09/14/21 09/14/21 History omeprazole 40 mg capsule,delayed 40 mg PO QAM 09/14/21 09/14/21 History release topiramate 50 mg tablet 50 mg PO HS 09/14/21 09/14/21 History Patient History Medical History CAD (coronary artery disease) LAD stent in 2020 at [facility] in [place], follows with [facility] Cardiology Depression GERD (gastroesophageal reflux disease) Hyperlipidemia Hypertension Insomnia Social History Smoking Status: Former smoker Second Hand Exposure: Yes; Hx Alcohol Use: No Hx Substance Use: No Preferred Language: Macedonian Communication Ability: Effective Humidifier Operator Required: No Beliefs That Will Affect Care: None Current Living Situation: Alone Feels Safe at Home: Yes Assistive Devices: Cane Review of Systems Review of Systems: A complete 10 point review of systems was reviewed with the patient with pertinent positives and negatives as per history of present illness. All else were negative. Physical Exam Physical Exam: VITAL SIGNS - Vital signs and nursing notes were reviewed. GENERAL - 60-year-old female appearing her stated age who is in no acute distress. Communicates well with provider and answers questions appropriately. SKIN - Without rashes. HEAD - NC/AT. EYES - PERRL with EOMI bilaterally. Sclera anicteric. EARS - No deformities of external structures noted on gross examination bilaterally. NOSE - Midline and without cyanosis. No epistaxis or purulent drainage noted. MOUTH/OROPHARYNX - Without perioral cyanosis. Buccal mucosa pink and moist. NECK - Neck with FROM. Supple to palpation. No lymphadenopathy noted. No nuchal rigidity. LUNGS - Chest wall symmetric without accessory muscle use, intercostals retractions, or central cyanosis. Normal vesicular breath sounds CTA B/L. No wheezes, rales, or rhonchi appreciated. CARDIAC - RRR with S1/S2. No murmur, rubs, or gallops appreciated. ABDOMEN - Abdominal contour obese without pulsations or visible masses. BS normoactive all four quadrants. No tenderness, palpable masses, hepatosplenomegaly, or ascites noted. EXTREMITIES - No clubbing or peripheral cyanosis. No pretibial edema present. +3/5 radial and dorsalis pedis pulses palpated throughout. +5/5 strength noted in UE/LE bilaterally. NEUROLOGIC - Cranial nerves II through XII grossly intact. Sensory intact to light touch throughout. PSYCH - A&Ox3 and cooperates fully with examiner. Pt is very pleasant and interacts well with examiner. Results & Data Results & Data ([facility]) Vital Signs (Past 12 Hours) Vital Signs Pulse Pulse Resp BP BP Pulse Ox 09/14/21 17:38 70 18 145/95 H 98 09/14/21 15:28 70 16 169/117 H 89 L 09/14/21 14:52 163/110 H 09/14/21 13:44 98 09/14/21 13:34 85 88 18 184/121 H 184/121 H 98 Coding Level of Care Code Critical Care 1st 30-74 mins Diagnoses Admitted to intensive care unit Z78.9 ACS (acute coronary syndrome) I24.9 S/P angioplasty Z98.62 CAD (coronary artery disease) I25.10 Hypertension I10 Hyperlipidemia E78.5 Time Spent (min) 45
[2021-09-14] MEDS: MIRTAZAPINE TAB 15 MG TAB PO SCH (20:46)
[2021-09-14] MEDS: TOPIRAMATE 50 MG TAB PO SCH (20:46)
[2021-09-14] MEDS ORDERED: ATORVASTATIN 40 MG TAB PO SCH (21:00)
--- NOTE | 2021-09-14 21:36 | Electrocardiogram Report ---
Test Reason : Blood Pressure : / mmHG Vent. Rate : 075 BPM Atrial Rate : 075 BPM P-R Int : 156 ms QRS Dur : 092 ms QT Int : 386 ms P-R-T Axes : 066 -17 047 degrees QTc Int : 431 ms Normal sinus rhythm Anterior infarct , age undetermined Abnormal ECG No previous ECGs available Confirmed by Richard Maddox ([id number]) on 09/14/2021 9:36:34 PM Referred By: Confirmed By:Richard Maddox
[2021-09-14] MEDS: carvediloL 12.5 MG TAB PO SCH (21:43)
[2021-09-15] MEDS: ONDANSETRON INJ 2 MG/ML 2 ML VIAL IV PRN (01:33)
[2021-09-15 02:20] LABS: Basophils # (auto) 0.02 K/uL (0-0.2); Basophils % (auto) 0.2 %; Eosinophils % (auto) 0.9 %; Hematocrit (blood only) 42.2 % (37-47); Hemoglobin 13.8 g/dL (12.0-16.0); Immature Granulocytes # (auto) 0.02 K/uL (0.00-0.02); Immature Granulocytes % (auto) 0.2 %; Lymphocytes # (auto) 1.52 K/uL (1.2-3.4); Mean Corpuscular Hemoglobin 28.6 pg (25-34); Mean Corpuscular Hgb Conc 32.7 g/dL (32-36); Mean Corpuscular Volume 87.6 fL (80-100); Mean Platelet Volume 11.2 fL (7.4-10.4); Monocytes # (auto) 1.02 K/uL (0.11-0.59); Monocytes % (auto) 8.8 %; Neutrophils # (auto) 8.97 K/uL (1.4-6.5); Neutrophils % (auto) 76.9 %; Platelet Count 240 K/uL (130-400); RDW Coefficient of Variation 14.6 % (11.5-14.5); RDW Standard Deviation 46.9 fL (36.4-46.3); Red Blood Count 4.82 M/uL (4.2-5.4); White Blood Count 11.65 K/uL (4.8-10.8)
[2021-09-15 02:28] LABS: Partial Thromboplastin Ratio 1.2; Partial Thromboplastin Time 32.4 Seconds (21.0-31.0)
[2021-09-15 02:56] LABS: BUN Creatinine Ratio 15.7 (10-20); Calcium 9.5 mg/dl (8.5-10.1); Chol HDL Ratio 3.6 (0-5); Creatinine Clr Calc Pharmacy 100.5 ml/min; Est GFR (African American) 107.6 ml/min; Est GFR (Non-African American) 92.9 ml/min; Magnesium 2.3 mg/dl (1.7-2.4); Phosphorus 2.5 mg/dl (2.5-4.9); Potassium 3.8 mmol/L (3.5-5.1)
[2021-09-15] MEDS ORDERED: HEPARIN IV BOLUS 3,000 UNITS in SYRINGE 0 ML IV ONE (04:00)
[2021-09-15 07:40] LABS: Estimated Average Glucose 114 mg/dl; Hemoglobin A1C 5.6 % (4.5-5.6)
--- NOTE | 2021-09-15 08:17 | Electrocardiogram Report ---
Test Reason : Blood Pressure : / mmHG Vent. Rate : 064 BPM Atrial Rate : 064 BPM P-R Int : 150 ms QRS Dur : 096 ms QT Int : 428 ms P-R-T Axes : 053 -22 047 degrees QTc Int : 441 ms Normal sinus rhythm Recent Anterior infarct (cited on or before 14-SEP-2021) Abnormal ECG When compared with ECG of 14-SEP-2021 13:24, No significant change Confirmed by Gerald Foster ([id number]) on 09/15/2021 8:17:08 AM Referred By: REFERRED SELF Confirmed By:Gerald Foster
--- NOTE | 2021-09-15 08:19 | Electrocardiogram Report ---
Test Reason : Blood Pressure : / mmHG Vent. Rate : 074 BPM Atrial Rate : 074 BPM P-R Int : 142 ms QRS Dur : 100 ms QT Int : 416 ms P-R-T Axes : 053 -24 050 degrees QTc Int : 461 ms Normal sinus rhythm Low voltage QRS Possible Inferior infarct (cited on or before 14-SEP-2021) Recent Anterior infarct (cited on or before 14-SEP-2021) Abnormal ECG When compared with ECG of 14-SEP-2021 15:38, Criteria for Inferior infarct now present Otherwise no significant change Confirmed by Gerald Foster ([id number]) on 09/15/2021 8:18:55 AM Referred By: REFERRED SELF Confirmed By:Gerald Foster
[2021-09-15] MEDS ORDERED: ASPIRIN 81 MG ECTAB PO SCH (09:00)
[2021-09-15] MEDS ORDERED: CLOPIDOGREL BISULFATE 75 MG TAB PO SCH (09:00)
[2021-09-15 09:19] LABS: Partial Thromboplastin Ratio 1.3
[2021-09-15] MEDS: amLODIPine BESYLATE 5 MG TAB PO SCH (09:42)
[2021-09-15] MEDS: carvediloL 12.5 MG TAB PO SCH ×2 (09:42→21:07)
[2021-09-15] MEDS: ASPIRIN 81 MG ECTAB PO SCH (09:42)
[2021-09-15] MEDS: buPROPion XL 300 MG TABCR PO SCH (09:42)
[2021-09-15] MEDS: ATORVASTATIN 40 MG TAB PO SCH (09:42)
[2021-09-15] MEDS: LOSARTAN POTASSIUM 50 MG TAB PO SCH (09:43)
[2021-09-15] MEDS: TICAGRELOR 90 MG TAB PO SCH ×2 (09:43→21:07)
[2021-09-15] MEDS: PANTOprazole 40 MG TAB PO SCH (09:43)
[2021-09-15] MEDS ORDERED: HEPARIN SOD (PORCINE) 1000 UNIT/ML IV ONE (10:00)
--- NOTE | 2021-09-15 10:08 | XCELERA ---
[id number]
--- NOTE | 2021-09-15 10:19 | Critical Care Progress Note ---
Date of Service September 15, 2021 Assessment & Plan (1) Admitted to intensive care unit: Plan: Reason Critically Ill: 60-year-old female with acute coronary syndrome who is status post PCI with angioplasty to the LAD requiring close hemodynamic monitoring status post coronary intervention. NEURO - * CAM ICU: NEGATIVE CARDIAC/VASCULAR - * Acute Coronary Syndrome s/p PCI w/ angioplasty to the Mid LAD w/o Stenting: * Finish Angiomax then to start Heparin gtt. * Continue Heparin gtt for 24 hrs per Interventionalist. * Per Dr. Guzman, patient to be started on Brilinta given reocclusion while on Plavix/ASA. Patient w/ ?? h/o SOB while on Brilinta in the past. Dr. Guzman suggests retrying again given the benefits. * Continue ASCVD Rx previously prescribed. * AM Echo. * [facility] to follow * EKG: NSR @ [address]/T-wave changes. QTc 441 ms. * Monitor on telemetry. RESPIRATORY - * No h/o pulmonary disease. * Prior smoker. * Supplemental O2 PRN. * Vomited during procedure. Monitor for s/s aspiration. GI/NUTRITION - * AHA Diet RENAL/LYTES - * No significant electrolyte derangements. - * No concerns at this time. * Strict I&Os. ENDO - * No h/o DM or thyroid Dz * BSGs per unit protocol. ISS --> gtt per unit policy. HEME - * Stable H&H * Requiring Heparin gtt ID - * No concerns for infectious contribution at this time. LINES/IV ACCESS - * PIVs x2 DVT PROPHYLAXIS - * Heparin gtt * SCDs I have personally spent 45 minutes of critical care time in the direct ma nagement of this patient. This is a life/limb threatening event. This includes time spent evaluating patient, direct bedside care, chart review, placing orders, interpretation of diagnostic studies, discussion with consultants, patient, and family members, as well as other required patient management activities. This time is exclusive of all separately billable procedures, and teaching time and separate from and in addition to any other critical care service time. Thank you for allowing us to participate in the care of this patient. Please refer to my attending physician's documentation for any further recommendations. (2) ACS (acute coronary syndrome): (3) S/P angioplasty: (4) CAD (coronary artery disease): (5) Hypertension: (6) Hyperlipidemia: Admission and Anticipated Discharge Date Admission Date: September 14, 2021 Results & Data Results & Data ([facility]) Vital Signs (Past 12 Hours) Vital Signs Temp Pulse Resp BP Pulse Ox 09/15/21 08:00 67 16 149/95 H 95 09/15/21 07:00 62 16 140/88 94 09/15/21 06:15 63 12 149/92 H 96 09/15/21 06:00 68 15 152/93 H 98 09/15/21 05:00 63 16 138/86 95 09/15/21 04:50 65 17 140/90 94 09/15/21 04:01 36.6 C 62 17 149/95 H 95 09/15/21 04:00 62 15 140/100 94 09/15/21 03:46 66 16 151/90 H 95 09/15/21 03:30 59 L 16 95 09/15/21 03:00 162/106 H 09/15/21 02:30 59 L 16 96 09/15/21 02:00 63 16 151/96 H 94 09/15/21 01:30 69 17 98 09/15/21 01:00 61 17 158/102 H 94 09/15/21 00:30 62 14 96 09/15/21 00:00 63 16 164/97 H 96 09/14/21 23:30 62 16 95 09/14/21 23:00 36.6 C 65 16 151/101 H 95 09/14/21 22:30 67 15 150/99 H 92 Critical Care Results & Data Vital Signs (Past 12 Hours) Vital Signs Temp Pulse Resp BP Pulse Ox 09/15/21 08:00 67 16 149/95 H 95 09/15/21 07:00 62 16 140/88 94 09/15/21 06:15 63 12 149/92 H 96 09/15/21 06:00 68 15 152/93 H 98 09/15/21 05:00 63 16 138/86 95 09/15/21 04:50 65 17 140/90 94 09/15/21 04:01 36.6 C 62 17 149/95 H 95 09/15/21 04:00 62 15 140/100 94 09/15/21 03:46 66 16 151/90 H 95 09/15/21 03:30 59 L 16 95 09/15/21 03:00 162/106 H 09/15/21 02:30 59 L 16 96 09/15/21 02:00 63 16 151/96 H 94 09/15/21 01:30 69 17 98 09/15/21 01:00 61 17 158/102 H 94 09/15/21 00:30 62 14 96 09/15/21 00:00 63 16 164/97 H 96 09/14/21 23:30 62 16 95 09/14/21 23:00 36.6 C 65 16 151/101 H 95 09/14/21 22:30 67 15 150/99 H 92 Lab & Micro Results (Past 24 Hours) RBC 4.82 M/uL (4.2-5.4) 09/15/21 WBC 11.65 K/uL (4.8-10.8) H 09/15/21 Hgb 13.8 g/dL (12.0-16.0) 09/15/21 Hct 42.2 % (37-47) 09/15/21 MCV 87.6 fL (80-100) 09/15/21 MCH 28.6 pg (25-34) 09/15/21 MCHC 32.7 g/dL (32-36) 09/15/21 RDW Standard Deviation 46.9 fL (36.4-46.3) H 09/15/21 RDW Coefficient of Variation 14.6 % (11.5-14.5) H 09/15/21 Plt Count 240 K/uL (130-400) 09/15/21 MPV 11.2 fL (7.4-10.4) H 09/15/21 Neutrophils (%) (Auto) 76.9 % 09/15/21 Lymphocytes (%) (Auto) 13.0 % 09/15/21 Monocytes # (Auto) 1.02 K/uL (0.11-0.59) H 09/15/21 Eosinophils # (Auto) 0.10 K/uL (0-0.5) 09/15/21 Immature Granulocyte % (Auto) 0.2 % 09/15/21 Neutrophils # (Auto) 8.97 K/uL (1.4-6.5) H 09/15/21 Lymphocytes # (Auto) 1.52 K/uL (1.2-3.4) 09/15/21 Monocytes # (Auto) 1.02 K/uL (0.11-0.59) H 09/15/21 Eosinophils # (Auto) 0.10 K/uL (0-0.5) 09/15/21 Basophils # (Auto) 0.02 K/uL (0-0.2) 09/15/21 Immature Granulocyte # (Auto) 0.02 K/uL (0.00-0.02) 09/15/21 Na 135 mmol/L (136-145) L 09/15/21 K 3.8 mmol/L (3.5-5.1) 09/15/21 Cl 103 mmol/L (98-107) 09/15/21 CO2 24 mmol/L (21-32) 09/15/21 Anion Gap 8 (3-11) 09/15/21 BUN 11 mg/dl (6-23) 09/15/21 Creatinine 0.70 mg/dl (0.6-1.2) 09/15/21 Estimated GFR ( Amer) 107.6 ml/min 09/15/21 Estimated GFR (Non-Af Amer) 92.9 ml/min 09/15/21 BUN/Creatinine Ratio 15.7 (10-20) 09/15/21 Glu 124 mg/dl (70-99(Fasting)) H 09/15/21 Ca 9.5 mg/dl (8.5-10.1) 09/15/21 Phosphorus Level 2.5 mg/dl (2.5-4.9) 09/15/21 Total Bilirubin 0.5 mg/dl (0.2-1.0) 09/14/21 AST 11 U/L (13-39) L 09/14/21 ALT 14 U/L (7-52) 09/14/21 Alkaline Phosphatase 132 U/L (34-104) H 09/14/21 TP 7.1 gm/dl (6.0-8.3) 09/14/21 Albumin 4.1 gm/dl (3.4-5.0) 09/14/21 Globulin 3.0 gm/dl (2.5-4.0) 09/14/21 Albumin/Globulin Ratio 1.4 (0.9-2) 09/14/21 Mg 2.3 mg/dl (1.7-2.4) 09/15/21 01:52 09/15/21 Calcium Level 9.5 mg/dl (8.5-10.1) 09/15/21 01:52 09/15/21 Prothromb Time International Ratio 1.0 (0.9-1.1) 09/14/21 13:29 09/14/21 Diagnostic Findings (Past 24 Hours) Chest X-Ray 09/14/21 13:54 XR chest 1V portable CLINICAL HISTORY: cp TECHNIQUE: Single frontal radiograph of the chest was obtained. Comparison: None available at the time of this dictation. FINDINGS: No lines and tubes are seen. The cardiomediastinal silhouette is normal. The lungs are clear. No evidence of pleural effusion or pneumothorax. IMPRESSION: No acute chest disease. ACT 112: Negative or not required by law. Electronically signed by: Trevon Barajas M.D. 09/14/2021 2:45 PM Chest CTA 09/14/21 14:52 CT angio chest dissec wo/w con CLINICAL HISTORY: htn, chest pain, arm pain TECHNIQUE: Multidetector row helical CT of the chest was performed before and after injection of IV contrast. Coronal and sagittal reformations were obtained. Automated dose lowering techniques and/or adjustment according to patient size were utilized for this exam. CT DOSE: 1172.56 mGy.cm Comparison: Comparison is made to chest radiograph 09/14/2021 FINDINGS: Lungs and pleura: Atelectasis versus scarring is seen in the dependent portions of the lungs. Heart and pericardium: Heart size is normal. No pericardial effusion. Vessels: No aortic dissection or intramural hematoma is seen. Moderate atherosclerotic disease is seen. Incidental note is made of common origin of the left common carotid artery and the right brachiocephalic artery. The pulmonary trunk is minimally prominent at 32 mm. Mediastinum and jeanie: Subcentimeter lymph nodes are seen. Chest wall and lower neck: Unremarkable. Abdomen: Unremarkable. Bones: Degenerative changes in the thoracic spine. IMPRESSION: No acute abnormality and in particular no evidence of acute aortic injury. ACT 112: Negative or not required by law. Electronically signed by: Trevon Barajas M.D. 09/14/2021 3:23 PM I & O Totals 24 Hours 09/14/21 09/15/21 09/16/21 06:59 06:59 06:59 Intake Total 829.9 / 829.9 143.85 / 143.85 Output Total 1700 / 1700 Balance -870.1 / -870.1 143.85 / 143.85 Cumulative 09/14/21 13:10 thru 09/15/21 09:43 Intake Total 973.75 Output Total 1700 Balance -726.25 RT Ventilator Mngmt (Last Documented) Ventilator Ordered Settings Respiratory Rate 16 09/15/21 08:00 Ventilator - PT Measurements Respiratory Rate 16 Coding Diagnoses Admitted to intensive care unit Z78.9 ACS (acute coronary syndrome) I24.9 S/P angioplasty Z98.62 CAD (coronary artery disease) I25.10 Hypertension I10 Hyperlipidemia E78.5
--- NOTE | 2021-09-15 11:47 | Hospitalist Progress Note ---
Date of Service September 15, 2021 Assessment & Plan (1) Chest pain: Plan: Chest Pain - Hx of CAD with LAD PCI 1 year ago in [place]. Was on ASA/Brilinta but developed dyspnea 2/2 brilinta and was switched to asa/plavix after 3-4 months - HEART alert called after repeat troponin back at 622.5, ongoing left arm pain despite multiple medications given for pain, HTN (10mg IV Labetalol, Dilaudid, morphine, 2 inch nitro-paste) - Upon arrival, initial HS trop 38.2.--two hours later repeat, 622.5, post cath - Cath: Occluded LAD stend with late stend thrombosis - Restarted on ASA/Brilinta post cath, recommended heparin gtt until 09/15 1900hrs - Pt has had return of dyspnea excatly the same as prior when tx with Brilinta. Different from presented sx with her heart attack, and no chest pain -Given thrombosis on Plavix and symptomatic intolerance to Brilinta convert to DAPT with aspirin/prasugrel Heparin GTT running through 1700 tonight, continue heparin drip and Brilinta evening dose then load 60 mg prasugrel tomorrow morning. Daily maintenance dose 10 mg thereafter. - Echo: EF 35-40, anterior akinesis, apical akinesis, concentric LVH, grade I DD. - Life vest discussed by Cards with pt, will defer at this time with close followup - +[place] 25mg - Repeat echo in ~1mo (2) CAD (coronary artery disease): Plan: - [place] last year, LAD stent placed at [facility] in [place]. - Have requested cardiology records from [facility], sees Dr. Sanchez there. - Amlodipine, carvedilol, losartan. +pinky - DAPT as noted (3) Hypertension: Plan: - Despite taking morning BP meds prior to arrival, she was very hypertensive upon arrival with highest BP in ED recorded at 184/121. After receiving 10 mg IV labetalol, Dilaudid, morphine, 2 inch nitro paste. - Nitro drip ordered on admit, was held and no infusion was given - BP normotensive at bedside this AM (4) Hyperlipidemia: Plan: - Continue atorvastatin 80 mg HS. - Trig 122, Chol 197, LDL 118, HDL 55 (5) Insomnia: Plan: - Continue mirtazapine. (6) Depression: Plan: - Continue Wellbutrin 300 mg daily. (7) GERD (gastroesophageal reflux disease): Plan: - PPI daily Plan: - ICU. - SCDs for VTE ppx. - Full Code. Admission and Anticipated Discharge Date Admission Date: September 14, 2021 Aldo Vasquez is seen at the bedside this morning. She reports she has had resolution of her chest discomfort and shoulder discomfort that brought her in, however she has had return of a dyspnea exactly like what she experienced while she is on Brilinta for 3 to 4 months. Reports it is a different shortness of breath than like when she came in, and feels like every 10 breaths she catches her breath with a deep breath, and notes she did have similar symptoms which began right after starting Brilinta and mostly resolved after switching to Plavix in the past with the exception of a few sporadic episodes. While she did not appreciate any other side effects while on this medication, she reported was difficult to tolerate and would like to pursue alternatives if possible. Otherwise her other symptoms have resolved and she feels well at bedside. Denies chest pain, chest pressure, difficulty breathing, lightheadedness, dizziness, bleeding. Denies history of bleeding. No headaches. No intracranial bleeds. DOes have a hx of gerd and uses NSAIDs. Discussed ulcer ppx and risk of bleeding Review of Systems Review of Systems: All systems reviewed & are unremarkable except as noted in Subjective Physical Exam Physical Exam: General: A&Ox3. NAD. Cooperative. HEENT: Atraumatic, normocephalic. Vision and hearing grossly intact. Pulm: CTAB A&P. -wheezes, -rales, -rhonchi. Symmetrical chest rise. No increase in work of breathing. No respiratory distress. Cardiac: RRR, -mrg. Radial pulses intact and symmetrical. Abdominal: Nontender, nondistended, soft. BS present. Extremities: Right radial cath access site with overlying dressing, C/C/I. TR band no longer present. Radial pulse intact and symmetrical bilaterally. Sensation of soft touch intact in hands and feet without asymmetry. Assemblyman Or Woman strength 5/5 bilaterally. Cap refill in index finger brisk bilaterally Results & Data Results & Data ([facility]) Vital Signs (Past 12 Hours) Vital Signs Temp Pulse Resp BP Pulse Ox 09/15/21 10:00 73 18 157/101 H 95 09/15/21 09:01 69 17 146/99 H 95 09/15/21 09:00 69 20 96 09/15/21 08:00 67 16 149/95 H 95 09/15/21 07:00 62 16 140/88 94 09/15/21 06:15 63 12 149/92 H 96 09/15/21 06:00 68 15 152/93 H 98 09/15/21 05:00 63 16 138/86 95 09/15/21 04:50 65 17 140/90 94 09/15/21 04:01 36.6 C 62 17 149/95 H 95 09/15/21 04:00 62 15 140/100 94 09/15/21 03:46 66 16 151/90 H 95 09/15/21 03:30 59 L 16 95 09/15/21 03:00 162/106 H 09/15/21 02:30 59 L 16 96 09/15/21 02:00 63 16 151/96 H 94 09/15/21 01:30 69 17 98 09/15/21 01:00 61 17 158/102 H 94 09/15/21 00:30 62 14 96 09/15/21 00:00 63 16 164/97 H 96 PG Care Time/CCT Total # of Minutes Spent Total Time Spent with Patient: Total time spent is greater than 50% in coordination of care (as documented) at patient's floor/unit and/or counseling patient: Coding Level of Care Code 99270 Subseq Hosp Care Lvl 3 Diagnoses Chest pain R07.9 CAD (coronary artery disease) I25.10 Hypertension I10 Hyperlipidemia E78.5 Insomnia G47.00 Depression F32.A GERD (gastroesophageal reflux disease) K21.9
--- NOTE | 2021-09-15 14:27 | Cardiology Progress Note ---
Date of Service September 15, 2021 Assessment & Plan (1) CAD (coronary artery disease): Plan: Late stent thrombosis of mid LAD post POBA with minimal residual thrombus no significant nonculprit disease 2. Ischemic cardiomyopathyEF 35 to 40%, LAD distribution wall motion abnormality 3. Hypertension 4. Dyslipidemia 5. GERD Chest pain-free Hemodynamically and electrically stable No access site complications No signs of heart failure on exam Complete heparin infusion today continue DAPT with aspirin, ticagrelor. Recurrent dyspnea symptoms with ticagrelor. We will transition to prasugrel in a.m. (loading dose) then 10 mg daily. Continue current carvedilol, losartan. Increase carvedilol as BP/heart rate allows add spironolactone We discussed LifeVest. With patient's current LV function on echo will plan to defer repeat limited echo tomorrow to reassess function, rule out LV thrombus From a cardiac standpoint okay with transition to telemetry. Admission and Anticipated Discharge Date Admission Date: September 14, 2021 Subjective Feeling better today. Denies any recurrent chest/arm/neck pain. Reports some intermittent shortness of breath similar to what she had previously while on ticagrelor. Telemetry reviewedno significant ventricular ectopy Echo reviewedhyperdynamic bases, mid anterior/apical akinesis with EF 35 to 40%. No LV thrombus. Flat IVC. Review of Systems Review of Systems: All systems reviewed & are unremarkable except as noted in HPI & below Physical Exam Physical Exam: General: Comfortable HEENT: Sclerae anicteric Lungs: Clear to auscultation bilaterally, no crackles or wheezes Cardiac: Regular rate and rhythm, no murmurs. No JVD Vascular: Right radial artery access site with no ecchymosis, hematoma. Distal pulse and sensation intact. Abdomen: Soft, nontender Extremities: Well perfused, no peripheral edema Neuro: Nonfocal Psych: Alert orient x3, normal affect and mood Results & Data ([facility]) Vital Signs (Past 12 Hours) Vital Signs Temp Pulse Resp BP Pulse Ox 09/15/21 13:00 83 18 130/99 96 09/15/21 12:00 76 17 148/89 H 96 09/15/21 11:00 71 22 149/97 H 95 09/15/21 10:00 73 18 157/101 H 95 09/15/21 09:01 69 17 146/99 H 95 09/15/21 09:00 69 20 96 09/15/21 08:00 67 16 149/95 H 95 09/15/21 07:00 62 16 140/88 94 09/15/21 06:15 63 12 149/92 H 96 09/15/21 06:00 68 15 152/93 H 98 09/15/21 05:00 63 16 138/86 95 09/15/21 04:50 65 17 140/90 94 09/15/21 04:01 97.9 F 62 17 149/95 H 95 09/15/21 04:00 62 15 140/100 94 09/15/21 03:46 66 16 151/90 H 95 09/15/21 03:30 59 L 16 95 09/15/21 03:00 162/106 H 09/15/21 02:30 59 L 16 96 PG Care Time/CCT Total # of Minutes Spent Total Time Spent with Patient: Total time spent is greater than 50% in coordination of care (as documented) at patient's floor/unit and/or counseling patient: Coding Level of Care Code 78045 Subseq Hosp Care Lvl 3 Diagnoses CAD (coronary artery disease) I25.10
[2021-09-15 16:12] LABS: Partial Thromboplastin Ratio 1.4
[2021-09-15] MEDS ORDERED: STOP HEPARIN DRIP ONE (17:00)
[2021-09-15] MEDS: MIRTAZAPINE TAB 15 MG TAB PO SCH (21:07)
[2021-09-15] MEDS: TOPIRAMATE 50 MG TAB PO SCH (21:07)
[2021-09-16 06:14] LABS: Basophils # (auto) 0.03 K/uL (0-0.2); Basophils % (auto) 0.3 %; Eosinophils # (auto) 0.15 K/uL (0-0.5); Eosinophils % (auto) 1.4 %; Hematocrit (blood only) 44.5 % (37-47); Hemoglobin 14.6 g/dL (12.0-16.0); Immature Granulocytes # (auto) 0.05 K/uL (0.00-0.02); Immature Granulocytes % (auto) 0.5 %; Lymphocytes # (auto) 2.37 K/uL (1.2-3.4); Lymphocytes % (auto) 21.8 %; Mean Corpuscular Hemoglobin 28.7 pg (25-34); Mean Corpuscular Hgb Conc 32.8 g/dL (32-36); Mean Corpuscular Volume 87.6 fL (80-100); Monocytes # (auto) 1.26 K/uL (0.11-0.59); Monocytes % (auto) 11.6 %; Neutrophils % (auto) 64.4 %; Platelet Count 259 K/uL (130-400); RDW Coefficient of Variation 14.5 % (11.5-14.5); Red Blood Count 5.08 M/uL (4.2-5.4); White Blood Count 10.86 K/uL (4.8-10.8)
[2021-09-16 06:23] LABS: BUN Creatinine Ratio 15.7 (10-20); Calcium 9.3 mg/dl (8.5-10.1); Creatinine Clr Calc Pharmacy 66.6 ml/min; Est GFR (African American) 68.3 ml/min; Est GFR (Non-African American) 58.9 ml/min; Magnesium 2.1 mg/dl (1.7-2.4); Potassium 3.7 mmol/L (3.5-5.1)
[2021-09-16] MEDS: carvediloL 12.5 MG TAB PO SCH ×2 (08:08→19:48)
[2021-09-16] MEDS: PANTOprazole 40 MG TAB PO SCH (08:09)
[2021-09-16] MEDS: amLODIPine BESYLATE 5 MG TAB PO SCH (08:09)
[2021-09-16] MEDS: ASPIRIN 81 MG ECTAB PO SCH (08:09)
[2021-09-16] MEDS: ATORVASTATIN 40 MG TAB PO SCH (08:09)
[2021-09-16] MEDS: buPROPion XL 300 MG TABCR PO SCH (08:09)
[2021-09-16] MEDS: LOSARTAN POTASSIUM 50 MG TAB PO SCH (08:10)
[2021-09-16] MEDS ORDERED: SPIRONOLACTONE 25 MG TAB PO SCH (09:00)
[2021-09-16] MEDS ORDERED: PRASugrel TAB 10 MG TAB PO ONE (09:00)
--- NOTE | 2021-09-16 09:05 | Electrocardiogram Report ---
Test Reason : Blood Pressure : / mmHG Vent. Rate : 066 BPM Atrial Rate : 066 BPM P-R Int : 140 ms QRS Dur : 090 ms QT Int : 430 ms P-R-T Axes : 059 -22 061 degrees QTc Int : 450 ms Normal sinus rhythm Low voltage QRS Recent Inferior infarct (cited on or before 14-SEP-2021) Recent Anterolateral infarct (cited on or before 14-SEP-2021) Abnormal ECG When compared with ECG of 14-SEP-2021 17:37, T wave inversion more evident in Anterolateral leads Confirmed by Gerald Foster ([id number]) on 09/16/2021 9:04:28 AM Referred By: REFERRED SELF Confirmed By:Gerald Foster
--- NOTE | 2021-09-16 11:10 | XCELERA ---
[id number]
[2021-09-16] MEDS: ONDANSETRON INJ 2 MG/ML 2 ML VIAL IV PRN (11:48)
[2021-09-16] MEDS ORDERED: SODIUM CHLORIDE 0.9% 1000ML 500 ML IV ONE ×2 (13:12→15:33)
--- NOTE | 2021-09-16 16:52 | Cardiology Progress Note ---
Date of Service September 16, 2021 Assessment & Plan (1) CAD (coronary artery disease): Plan: Late stent thrombosis of mid LAD post POBA with minimal residual thrombus no significant nonculprit disease 2. Ischemic cardiomyopathyEF 35 to 40%, LAD distribution wall motion abnormality 3. Hypertension 4. Dyslipidemia 5. GERD Feeling unwell today in the setting of hypotension. Has remained chest pain-free. Troponin downtrending Low suspicion for recurrent stent thrombosis. Suspect related to escalation in GDMT/antihypertensives. LVEF ~40% on Echo, no LV thrombus. low CVP by echo. Hold evening carvedilol Agree with additional IV fluid bolus this afternoon Continue DAPT with aspirin, prasugrel Stop amlodipine Continue home carvedilol, losartan in AM. Pending blood pressures will consider retrial of spironolactone 12.5 mg daily No need for LifeVest If blood pressures improve possible discharge tomorrow Admission and Anticipated Discharge Date Admission Date: September 14, 2021 Subjective Was feeling well initially this morning. Later today felt unwell, to be more short of breath and blood pressures noted to be low down to 70s. Denies any chest pain, arm pain, neck pain. Repeat ECGsinus with anterior T wave inversions consistent with evolving MA [id number] down to 14,000 Echoshowed slightly improved LV function, EF 40%, no LV thrombus, IVC flat Review of Systems Review of Systems: All systems reviewed & are unremarkable except as noted in HPI & below Physical Exam Physical Exam: General: Uncomfortable HEENT: Sclerae anicteric Lungs: Clear to auscultation bilaterally Cardiac: Regular rate and rhythm, no murmurs. Vascular: Right radial artery access site with no ecchymosis, hematoma. Distal pulse and sensation intact. Abdomen: Soft, nontender Extremities: Well perfused, no peripheral edema Neuro: Nonfocal Psych: Alert orient x3, normal affect and mood Results & Data ([facility]) Vital Signs (Past 12 Hours) Vital Signs Temp Pulse Pulse Resp BP Pulse Ox 09/16/21 15:21 84/59 L 90 09/16/21 13:48 92/62 L 09/16/21 08:00 98.4 F 81 63 16 115/75 97 PG Care Time/CCT Total # of Minutes Spent Total Time Spent with Patient: Total time spent is greater than 50% in coordination of care (as documented) at patient's floor/unit and/or counseling patient: Coding Level of Care Code 69591 Subseq Hosp Care Lvl 3 Diagnoses CAD (coronary artery disease) I25.10
--- NOTE | 2021-09-16 17:13 | Hospitalist Progress Note ---
Date of Service September 16, 2021 Assessment & Plan (1) Chest pain: Plan: Chest Pain - Hx of CAD with LAD PCI 1 year ago in [place]. Was on ASA/Brilinta but developed dyspnea 2/2 brilinta and was switched to asa/plavix after 3-4 months - HEART alert called after repeat troponin back at 622.5, ongoing left arm pain despite multiple medications given for pain, HTN (10mg IV Labetalol, Dilaudid, morphine, 2 inch nitro-paste) - Upon arrival, initial HS trop 38.2.--two hours later repeat, 622.5, post cath - Cath: Occluded LAD stend with late stent thrombosis - Restarted on ASA/Brilinta post cath, heparin gtt until 09/15 1900hrs then was discontinued - Pt had return of dyspnea excatly the same as prior when tx with Brilinta. Different from presented sx with her heart attack, and no chest pain -Given thrombosis on Plavix and symptomatic intolerance to Brilinta converted to DAPT with aspirin/prasugrel - Brilinta d/parish, loaded with prasugrel 09/16 AM - Echo: EF 35-40, anterior akinesis, apical akinesis, concentric LVH, grade I DD. Limited repeat echo with normal LV size, LVEF approximately 40%, LAD distribution wall motion abnormalities without significant changes compared to 09/15/2021. Did discuss with cardiology may have some subtle wall motion changes - Life vest discussed by Cards with pt, deferred to close followup Spironolactone 25 mg added Patient hypotensive but fluid responsive 09/16. Following for stent reocclusion vs evolving infarct versus volume depletion. Troponin and 2-hour repeat downtrending Amlodipine discontinued for hypotension. Patient with continued hypotension, spironolactone and losartan held (2) CAD (coronary artery disease): Plan: - [place] last year, LAD stent placed at [facility] in [place]. - Outpt follows with [facility], sees Dr. Sanchez there. - Amlodipine, carvedilol, losartan. +pinky - DAPT as noted - Held antihypertensives for hypotension as noted (3) Hypertension: Plan: - Despite taking morning BP meds prior to arrival, she was very hypertensive upon arrival with highest BP in ED recorded at 184/121. After receiving 10 mg IV labetalol, Dilaudid, morphine, 2 inch nitro paste. - Nitro drip ordered on admit, was held and no infusion was given/required (4) Hyperlipidemia: Plan: - Continue atorvastatin 80 mg HS. - Trig 122, Chol 197, LDL 118, HDL 55 (5) Insomnia: Plan: - Continue mirtazapine. (6) Depression: Plan: - Continue Wellbutrin 300 mg daily. (7) GERD (gastroesophageal reflux disease): Plan: - PPI daily Plan: - ICU. - SCDs for VTE ppx. - Full Code. Admission and Anticipated Discharge Date Admission Date: September 14, 2021 Subjective Patient is seen at the bedside and on reassessment throughout the day. On morning assessment patient was feeling well, normotensive, no new symptoms and no chest pain. 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 Heart rate was elevated 130s, at arrival to bedside heart rate had improved but still hypotensive in 8090 systolic. No chest pain/shortness of breath/difficulty breathing. Lungs with trace bibasilar crackles which clear on deep breath. Given low EF did discuss with cards, IVC was flat on echo and nss bolus was given. Patient was not fluid responsive, heart rate down trended to 80s but continued to be hypotensive in the 80s to 90s. Troponins trended and additional bolus given. Troponins were downtrending on spot and 2-hour recheck. Follow closely overnight, remain ICU on PCU status. If symptoms recur/troponin up trends may need reassessment for stent thrombosis. Patient aware. Review of Systems 2 Review of Systems: All systems reviewed & are unremarkable except as noted in Subjective Patient with no chest pain, chest pressure, shortness of breath throughout the day. Nausea and 1 episode of emesis as noted. Otherwise 10pt review systems negative. Physical Exam Physical Exam: General: A&Ox3. NAD. Cooperative. HEENT: Atraumatic, normocephalic. Vision and hearing grossly intact. Pulm: CTAB A&P. Symmetrical chest rise. No increase in work of breathing. No respiratory distress. Cardiac: RRR, -mrg. Radial pulses intact and symmetrical. Abdominal: Nontender, nondistended, soft. BS present. Extremities: Right radial cath access site C/D/I. Sensation of soft touch intact in hands and feet without asymmetry. [employer] strength 5/5 bilaterally. Cap refill in index finger brisk bilaterally On later morning reassessment trace faint bibasilar crackles which clear on deep breath, no JVD, tachycardic Again with regular rate on reassessment. Abdomen nontender. Cap refill less than 2 seconds in thumb. BP recheck on subsequent reevaluation 90s following boluses, rate remains regular Results & Data Results & Data ([facility]) Vital Signs (Past 12 Hours) Vital Signs Temp Pulse Pulse Resp BP Pulse Ox 09/16/21 15:21 84/59 L 90 09/16/21 13:48 92/62 L 09/16/21 08:00 36.9 C 81 63 16 115/75 97 PG Care Time/CCT Total # of Minutes Spent Total Time Spent with Patient: Total time spent is greater than 50% in coordination of care (as documented) at patient's floor/unit and/or counseling patient: Coding Level of Care Code 18576 Subseq Hosp Care Lvl 3 Diagnoses Chest pain R07.9 CAD (coronary artery disease) I25.10 Hypertension I10 Hyperlipidemia E78.5 Insomnia G47.00 Depression F32.A GERD (gastroesophageal reflux disease) K21.9
[2021-09-16] MEDS: TOPIRAMATE 50 MG TAB PO SCH (19:48)
[2021-09-16] MEDS: MIRTAZAPINE TAB 15 MG TAB PO SCH (19:48)
[2021-09-17 05:42] LABS: Basophils # (auto) 0.03 K/uL (0-0.2); Basophils % (auto) 0.3 %; Eosinophils % (auto) 1.9 %; Hematocrit (blood only) 38.9 % (37-47); Immature Granulocytes # (auto) 0.04 K/uL (0.00-0.02); Immature Granulocytes % (auto) 0.4 %; Lymphocytes # (auto) 2.35 K/uL (1.2-3.4); Lymphocytes % (auto) 22.6 %; Mean Corpuscular Hgb Conc 33.4 g/dL (32-36); Mean Corpuscular Volume 89.6 fL (80-100); Mean Platelet Volume 10.5 fL (7.4-10.4); Monocytes # (auto) 1.15 K/uL (0.11-0.59); Monocytes % (auto) 11.1 %; Neutrophils # (auto) 6.62 K/uL (1.4-6.5); Neutrophils % (auto) 63.7 %; Platelet Count 277 K/uL (130-400); RDW Coefficient of Variation 14.6 % (11.5-14.5); RDW Standard Deviation 48.2 fL (36.4-46.3); Red Blood Count 4.34 M/uL (4.2-5.4); White Blood Count 10.39 K/uL (4.8-10.8)
[2021-09-17 06:06] LABS: BUN Creatinine Ratio 23.6 (10-20); Calcium 8.8 mg/dl (8.5-10.1); Creatinine Clr Calc Pharmacy 47.4 ml/min; Est GFR (Non-African American) 38.8 ml/min; Magnesium 2.2 mg/dl (1.7-2.4); Phosphorus 3.9 mg/dl (2.5-4.9); Potassium 3.7 mmol/L (3.5-5.1)
[2021-09-17] MEDS: ATORVASTATIN 40 MG TAB PO SCH (08:51)
[2021-09-17] MEDS: ASPIRIN 81 MG ECTAB PO SCH (08:51)
--- NOTE | 2021-09-17 08:51 | Electrocardiogram Report ---
Test Reason : Blood Pressure : / mmHG Vent. Rate : 065 BPM Atrial Rate : 065 BPM P-R Int : 140 ms QRS Dur : 086 ms QT Int : 474 ms P-R-T Axes : 058 -42 136 degrees QTc Int : 492 ms Normal sinus rhythm Left axis deviation Low voltage QRS Recent Inferior infarct (cited on or before 14-SEP-2021) Recent Anterolateral infarct (cited on or before 14-SEP-2021) Abnormal ECG When compared with ECG of 15-SEP-2021 06:03, Serial changes of Anterior infarct Present Confirmed by Gerald Foster ([id number]) on 09/17/2021 8:51:22 AM Referred By: REFERRED SELF Confirmed By:Gerald Foster
[2021-09-17] MEDS: carvediloL 12.5 MG TAB PO SCH (08:52)
[2021-09-17] MEDS: buPROPion XL 300 MG TABCR PO SCH (08:52)
[2021-09-17] MEDS: PANTOprazole 40 MG TAB PO SCH (08:52)
--- NOTE | 2021-09-17 10:53 | Cardiology Progress Note ---
Date of Service September 17, 2021 Assessment & Plan (1) CAD (coronary artery disease): Plan: Late stent thrombosis of mid LAD post POBA with minimal residual thrombus no significant nonculprit disease 2. Ischemic cardiomyopathyEF 35 to 40%, LAD distribution wall motion abnormality 3. Hypertension 4. Dyslipidemia 5. GERD Feeling better today. No recurrent chest pain. Blood pressures stable. From a cardiac standpoint OK with discharge today. Home on: -- DAPT with ASA and Prasugrel -- continue home carvedilol 12.5 mg BID. Reduce losartan to 50mg daily. 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 No chest pain. No shortness of breath walking around this morning. Ready to go home. Review of Systems Review of Systems: All systems reviewed & are unremarkable except as noted in HPI & below Physical Exam Physical Exam: General: Comfortable HEENT: Sclerae anicteric Lungs: Clear to auscultation bilaterally Cardiac: Regular rate and rhythm, no murmurs. Vascular: Right radial artery access site with no ecchymosis, hematoma. Distal pulse and sensation intact. Abdomen: Soft, nontender Extremities: Well perfused, no peripheral edema Neuro: Nonfocal Psych: Alert orient x3, normal affect and mood Results & Data ([facility]) Vital Signs (Past 12 Hours) Vital Signs Temp Pulse Pulse Pulse Resp BP BP 09/17/21 10:47 72 18 129/79 09/17/21 08:50 69 17 104/65 09/17/21 07:30 64 09/17/21 07:06 98.1 F 73 15 102/65 09/17/21 04:00 97.7 F 65 18 97/59 L 09/17/21 00:00 98.3 F 62 21 96/70 L 09/16/21 23:55 63 16 Pulse Ox 09/17/21 10:47 96 09/17/21 08:50 97 09/17/21 07:30 09/17/21 07:06 96 09/17/21 04:00 93 09/17/21 00:00 92 09/16/21 23:55 92 PG Care Time/CCT Total # of Minutes Spent Total Time Spent with Patient: Total time spent is greater than 50% in coordination of care (as documented) at patient's floor/unit and/or counseling patient: Coding Level of Care Code 25648 Subseq Hosp Care Lvl 3 Diagnoses CAD (coronary artery disease) I25.10
[2021-09-17] MEDS ORDERED: LOSARTAN POTASSIUM 50 MG TAB PO SCH (11:00)
[2021-09-17] MEDS ORDERED: PRASugrel TAB 10 MG TAB PO SCH (11:00)
--- NOTE | 2021-09-17 11:42 | Hospitalist Progress Note ---
Date of Service September 17, 2021 Assessment & Plan (1) Chest pain: Plan: Chest Pain - Hx of CAD with LAD PCI 1 year ago in [place]. Was on ASA/Brilinta but developed dyspnea 2/2 brilinta and was switched to asa/plavix after 3-4 months - HEART alert called after repeat troponin back at 622.5, ongoing left arm pain despite multiple medications given for pain, HTN (10mg IV Labetalol, Dilaudid, morphine, 2 inch nitro-paste) - Upon arrival, initial HS trop 38.2.--two hours later repeat, 622.5, post cath - Cath: Occluded LAD stend with late stent thrombosis - Restarted on ASA/Brilinta post cath, heparin gtt until 09/15 1900hrs then was discontinued - Pt had return of dyspnea excatly the same as prior when tx with Brilinta. Different from presented sx with her heart attack, and no chest pain -Given thrombosis on Plavix and symptomatic intolerance to Brilinta converted to DAPT with aspirin/prasugrel - Brilinta d/parish, loaded with prasugrel 09/16 AM - Echo: EF 35-40, anterior akinesis, apical akinesis, concentric LVH, grade I DD. Limited repeat echo with normal LV size, LVEF approximately 40%, LAD distribution wall motion abnormalities without significant changes compared to 09/15/2021. Did discuss with cardiology may have some subtle wall motion changes - Life vest discussed by Cards with pt, deferred to close followup Spironolactone 25 mg added Patient hypotensive but fluid responsive 09/16. Following for stent reocclusion vs evolving infarct versus volume depletion. Troponin and 2-hour repeat downtrending Amlodipine discontinued for hypotension. Hypotension now resolved (2) CAD (coronary artery disease): Plan: - [place] last year, LAD stent placed at [facility] in [place]. - Outpt follows with [facility], sees Dr. Sanchez there. -Aspirin, prasugrel, losartan therapy (3) Hypertension: Plan: - Hypertensive on admission but then developed hypotension which has now resolved. Continue current medical management. (4) Hyperlipidemia: Plan: - Continue atorvastatin 80 mg HS. - Trig 122, Chol 197, LDL 118, HDL 55 (5) Insomnia: Plan: - Continue mirtazapine. (6) Depression: Plan: - Continue Wellbutrin 300 mg daily. (7) GERD (gastroesophageal reflux disease): Plan: - PPI daily Plan: Discharge home today, September 17 Admission and Anticipated Discharge Date Admission Date: September 14, 2021 Subjective Asymptomatic and stable. Cardiology has seen the patient and cleared her for discharge home today, September 17 Review of Systems Review of Systems: Constitutional-no fever or chills ENT-no blurred vision, no double vision, no epistaxis, no sore throat Respiratory-no cough, no wheezing, no shortness of breath Cardiac-no palpitations, no chest pain, no syncope GI-no nausea, vomiting, diarrhea, melena, hematochezia -no urinary retention, no urinary incontinence, no dysuria, no hematuria Musculoskeletal-no joint pain, no muscle tenderness Skin-no bruising, no rashes, no pruritus Neuro-no isolated weakness, no paresthesia, no weakness Psych-no depression, no anxiety Physical Exam Physical Exam: General-alert and oriented x3, no fevers, no chills HEENT-head atraumatic and normocephalic, TMs intact bilaterally, pupils equal and reactive to light, extraocular muscles intact Neck-no lymphadenopathy or thyromegaly, trachea midline Chest-clear to auscultation percussion. No rales wheezing or rhonchi Cardiac-regular rate and rhythm, normal S1 and S2, no murmurs Abdomen-normal bowel sounds, nontender, no hepatosplenomegaly Extremities-no cyanosis, clubbing, or edema Neuro-cranial nerves II through XII intact, motor and sensory function within normal limits, strength symmetrical , no focal deficits Psych-normal affect, normal mood Results & Data Results & Data ([facility]) Vital Signs (Past 12 Hours) Vital Signs Temp Pulse Pulse Pulse Resp BP BP 09/17/21 10:47 72 18 129/79 09/17/21 08:50 69 17 104/65 09/17/21 07:30 64 09/17/21 07:06 36.7 C 73 15 102/65 09/17/21 04:00 36.5 C 65 18 97/59 L 09/17/21 00:00 36.8 C 62 21 96/70 L 09/16/21 23:55 63 16 Pulse Ox 09/17/21 10:47 96 09/17/21 08:50 97 09/17/21 07:30 09/17/21 07:06 96 09/17/21 04:00 93 09/17/21 00:00 92 09/16/21 23:55 92 Laboratory Results 09/17/21 05:24 09/17/21 05:24 PG Care Time/CCT Total # of Minutes Spent Total Time Spent with Patient: Total time spent is greater than 50% in coordination of care (as documented) at patient's floor/unit and/or counseling patient: Coding Level of Care Code 08744 Subseq Hosp Care Lvl 3 Diagnoses Chest pain R07.9 CAD (coronary artery disease) I25.10 Hypertension I10 Hyperlipidemia E78.5 Insomnia G47.00 Depression F32.A GERD (gastroesophageal reflux disease) K21.9
--- NOTE | 2021-09-17 11:45 | Discharge Summary ---
Date of Service September 17, 2021 Admission HPI Per Admitting Provider Anya Almazan is a 60-year-old female with past medical history significant for CAD with LAD stent placed 1 year ago now on DAPT, hypertension, hyperlipidemia, GERD, depression, an insomnia who presents today with chest pain this morning. [place] this [place], she woke up this morning in her usual state of health, cooked breakfast consisting of sausage and Serbian toast. She ate this, during her morning coffee with her daughter. While sitting down, she began to experience pain in her epigastric region that traveled up her chest and throat into her her jaw to the ear. She initially wanted to wait out the pain to see if going outside, however she later developed left arm pain. This presentation is very similar to how she felt last year prior to her DC, therefore she had daughter call EMS to bring her to ED for further evaluation. She has not had any associated symptoms such as shortness of breath, palpitations, dizziness, lightheadedness, initially was not nauseous, however became slightly nauseous on her arrival to the hospital. She did receive 2 nitro sublingual tabs as well as 4 baby aspirin in route which helped somewhat. Since her DC 1 year ago, she has been compliant with her aspirin and Plavix therapy, BP medd, and statin and has been attending cardiac rehab, this ended last week. There are several occasions within the past couple months when she could not attend due to elevated blood pressure, mostly diastolic blood pressure, with 1 incident this week. She does check her blood pressure at least weekly at home, reports systolic is [id number], diastolic in 70s or 80s. In ED, she initially presented quite hypertensive with BP 184/121, however now down to 150s/90s following 2 inch Nitropaste, morphine, Dilaudid, and 10 mg IV labetalol. Otherwise vital signs within normal limits. After receiving morphine, Dilaudid she went down to 89% on room air, so was placed on 2 L. Initial troponin 38.2. Labs otherwise unremarkable. CXR unremarkable. Chest CTA ordered to evaluate for dissection, given chest pain with significant hypertension, however this was unrevealing for any acute process. Despite the above therapies for blood pressure control and chest pain, patient continued to have left arm pain, her chest pain has resolved. Principal Diagnosis STEMI Discharge Exam General-alert and oriented x3, no fevers, no chills HEENT-head atraumatic and normocephalic, TMs intact bilaterally, pupils equal and reactive to light, extraocular muscles intact Neck-no lymphadenopathy or thyromegaly, trachea midline Chest-clear to auscultation percussion. No rales wheezing or rhonchi Cardiac-regular rate and rhythm, normal S1 and S2, no murmurs Abdomen-normal bowel sounds, nontender, no hepatosplenomegaly Extremities-no cyanosis, clubbing, or edema Neuro-cranial nerves II through XII intact, motor and sensory function within normal limits, strength symmetrical , no focal deficits Psych-normal affect, normal mood Discharge Data Allergies Allergy/AdvReac Type Severity Reaction Status Date / Time No Known Allergies Allergy Verified 09/14/21 15:34 Consultations 09/14/21 15:40 ED Decision to Admit Stat 09/14/21 19:11 Consult Internal Medicine Routine 09/14/21 19:25 Consult Cardiology Routine 09/14/21 19:59 Consult Director Of Materials Routine 09/14/21 20:00 Consult Cardiology Routine Procedures Performed Operation Date: 09/14/21 18:00 Actual Procedures p Cath, Coronaries ONLY (no LV) - Khris Guzman MD p Aspiration/PCI w/JIMMY for Stemi - Khris Guzman MD Ordered Studies 09/14/21 14:52 CT angio chest dissec wo/w con Stat 09/14/21 17:47 CL Cath Imgs for PACS use only Stat Hospital Course (1) Chest pain: Chest Pain - Hx of CAD with LAD PCI 1 year ago in [place]. Was on ASA/Brilinta but developed dyspnea 2/2 brilinta and was switched to asa/plavix after 3-4 months - HEART alert called after repeat troponin back at 622.5, ongoing left arm pain despite multiple medications given for pain, HTN (10mg IV Labetalol, Dilaudid, morphine, 2 inch nitro-paste) - Upon arrival, initial HS trop 38.2.--two hours later repeat, 622.5, post cath - Cath: Occluded LAD stend with late stent thrombosis - Restarted on ASA/Brilinta post cath, heparin gtt until 09/15 1900hrs then was discontinued - Pt had return of dyspnea excatly the same as prior when tx with Brilinta. Different from presented sx with her heart attack, and no chest pain -Given thrombosis on Plavix and symptomatic intolerance to Brilinta converted to DAPT with aspirin/prasugrel - Brilinta d/parish, loaded with prasugrel 09/16 AM - Echo: EF 35-40, anterior akinesis, apical akinesis, concentric LVH, grade I DD. Limited repeat echo with normal LV size, LVEF approximately 40%, LAD distribution wall motion abnormalities without significant changes compared to 09/15/2021. Did discuss with cardiology may have some subtle wall motion changes - Life vest discussed by Cards with pt, deferred to close followup Spironolactone 25 mg added Patient hypotensive but fluid responsive 09/16. Following for stent reocclusion vs evolving infarct versus volume depletion. Troponin and 2-hour repeat downtrending Amlodipine discontinued for hypotension. Hypotension now resolved (2) CAD (coronary artery disease): - DC last year, LAD stent placed at [facility] in [place]. - [facility], sees Dr. Sanchez there. -Aspirin, prasugrel, losartan therapy (3) Hypertension: - Hypertensive on admission but then developed hypotension which has now resolved. Continue current medical management. (4) Hyperlipidemia: - Continue atorvastatin 80 mg HS. - Trig 122, Chol 197, LDL 118, HDL 55 (5) Insomnia: - Continue mirtazapine. (6) Depression: - Continue Wellbutrin 300 mg daily. (7) GERD (gastroesophageal reflux disease): - PPI daily Discharge home today, September 17 Total Time Total Time Spent Total Time Spent (In Minutes): 35 minutes Discharge Plan Discharge Items Patient Disposition: Home - Self-Care Reason For Visit: CHEST PAIN Discharge Diagnosis: STEMI Condition on Discharge: Fair Activity: Per Instructions section Activity Comment: Avoid overexertion until cleared by primary care provider Non-emergency contact: Primary Care Provider Call non-emergency contact if: you have any medication questions Follow-up/Referrals: PCP,NO [Physician] - Diet: Heart Healthy Addtl Attending Provider Instructions: Current medications include aspirin, prasugrel, losartan Pending Studies at Discharge: No Stand-Alone Forms: [email or web address], Smoking Cessation Medications and DC Order Prescriptions: New losartan 50 mg Tablet 50 mg PO QAM Qty: 3 RF: 0 atorvastatin 40 mg Tablet 80 mg PO QAM Qty: 30 RF: 0 nitroglycerin [Nitrostat] 0.4 mg Tablet, Sublingual 0.4 mg sublingual UD PRN (Reason: chest pain) Qty: 25 RF: 0 prasugrel 10 mg Tablet 10 mg PO QAM Qty: 30 RF: 0 Continued atorvastatin 80 mg tablet 80 mg PO HS RF: 0 carvedilol 12.5 mg tablet 12.5 mg PO BID RF: 0 omeprazole 40 mg capsule,delayed release(DR/EC) 40 mg PO QAM RF: 0 aspirin 81 mg Tablet,Delayed Release (Dr/Ec) 81 mg PO DAILY RF: 0 mirtazapine 15 mg tablet 15 mg PO HS RF: 0 bupropion HCl 300 mg tablet extended release 24 hr 300 mg PO QAM RF: 0 topiramate 50 mg tablet 50 mg PO HS RF: 0 Discontinued clopidogrel 75 mg tablet 75 mg PO QAM RF: 0 amlodipine 10 mg tablet 10 mg PO QAM RF: 0 losartan 100 mg tablet 100 mg PO QAM RF: 0 Discharge Orders: Discharge Order (Routine); Ordered 09/17/21 Ordered By: Leo Chi Admission Data Admit Date/Time: 09/14/21 18:23 Attending Provider: Leo Chi Admit Provider: Lucio Reyes Primary Care Provider: Angelique Dailey Other Providers: Jose J Valles ; Lucio Reyes ; Jason Garnett ; Jeremie Alonzo Seth D. ; Carlos Manuel Rangel ; Rafal Armstrong ; Reji Tony ; [facility] ; Jina Crawley ; Richard Maddox ; Khris Guzman Coding Level of Care Code D/C DAY MANAGEMENT >30 MINS Diagnoses Chest pain R07.9 CAD (coronary artery disease) I25.10 Hypertension I10 Hyperlipidemia E78.5 Insomnia G47.00 Depression F32.A GERD (gastroesophageal reflux disease) K21.9
== END 2021-09-17 16:16 | disposition home or self-care (01) | DRG 251 ==
LOC: ED 13:18 → CC 18:22 → SUATTDRO 18:23 → 1E 19:16
PROC: CLB.CCO (2021-09-14 18:00)